=== PATIENT | female | born 1930 | race African-American/Black ===

== ENCOUNTER 2019-08-08 13:52 | Inpatient (IN) | payer MEDICARE, MEDICAID ==
[2019-08-08] MEDS ORDERED: HYDROCODONE/ACETAMINOPHEN 5-325 MG TABLET PO ONE (14:18)
[2019-08-08 14:44] LABS: ABSOLUTE LYMPHOCYTES (AUTO) 0.5 10^3/uL (0.5-4.7); ABSOLUTE MONOCYTES (AUTO) 0.6 10^3/uL (0.1-1.4); ABSOLUTE NEUT (AUTO) 4.8 10^3/uL (1.7-8.2); BASOPHILS % (AUTO) 0.3 % (0-2); HEMATOCRIT 24.9 % (36.0-47.0); HEMOGLOBIN 8.3 g/dL (12.0-15.5); LYMPHOCYTES % (AUTO) 8.2 % (13-45); MEAN CORPUSCULAR HEMOGLOBIN 28.4 pg (27.0-33.4); MEAN CORPUSCULAR HGB CONC 33.2 g/dL (32.0-36.0); MEAN CORPUSCULAR VOLUME 85 fl (80-97); MONOCYTES % (AUTO) 10.4 % (3-13); PLATELET COUNT 211 10^3/uL (150-450); RED BLOOD COUNT 2.92 10^6/uL (3.72-5.28); RED CELL DISTRIBUTION WIDTH 14.8 % (11.5-14.0); SEGMENTED NEUTROPHILS % (AUTO) 81.1 % (42-78); TOTAL CELLS COUNTED % (AUTO) 100 %
[2019-08-08 15:02] LABS: ALBUMIN 3.9 g/dL (3.5-5.0); ALKALINE PHOSPHATASE 86 U/L (38-126); ANION GAP 8 (5-19); ASPARTATE AMINO TRANSFERASE 54 U/L (14-36); BILIRUBIN,DIRECT 0.2 mg/dL (0.0-0.4); BILIRUBIN,TOTAL 0.5 mg/dL (0.2-1.3); BLOOD UREA NITROGEN 26 mg/dL (7-20); CALCIUM 9.4 mg/dL (8.4-10.2); CARBON DIOXIDE 28 mmol/L (22-30); CHLORIDE 101 mmol/L (98-107); GLUCOSE 109 mg/dL (75-110); TOTAL PROTEIN 7.2 g/dL (6.3-8.2)
--- NOTE | 2019-08-08 15:04 | ER Document Report ---
ED Extremity Problem, Lower - General Stated Complaint: FALL/LEFT ARM PAIN Time Seen by Provider: 08/08/19 14:14 Mode of Arrival: Ambulatory Information source: Patient Notes: Chief complaint: Left elbow pain History of complain:( obtained from----patient) 89 years old female while walking tripped and fell backwards while falling so she landed on her left elbow. This happened 3 days ago since then having pain over the left elbow, the family was putting ice and rubbing the arm, currently developed diffuse erythema involving the distal half of the arm and almost the entire forearm and elbow. Therefore they brought her to the ED. No syncopal episode., Denies any head injury. Currently denies any headache n pillo pain chest pain or lower back pain. Denies any pain or injury to the hips. Onset: As above Duration: As above Severity: Moderate Quality: Sharp Context: As described above Exacerbating factor and relieving factors: Any movement REVIEW OF SYSTEMS: CONSTITUTIONAL : Denies fever, chills, or sweats. Denies recent illness. EENT: Denies eye, ear, throat, or mouth pain or symptoms. Denies nasal or sinus congestion or discharge. Denies throat, tongue, or mouth swelling or difficulty swallowing. CARDIOVASCULAR: Denies chest pain. Denies palpitations or racing or irregular heart beat. Denies ankle edema. RESPIRATORY: Denies cough, cold, or chest congestion. Denies shortness of br eath, difficulty breathing, or wheezing. GASTROINTESTINAL: Denies distention. Denies nausea, vomiting, or diarrhea. Denies blood in vomitus, stools, or per rectum. Denies black, tarry stools. De nies constipation. GENITOURINARY: Denies difficulty urinating, painful urination, burning, frequen cy, blood in urine, or discharge. FEMALE GENITOURINARY: Denies vaginal bleeding, heavy or abnormal periods, irregular periods. Denies vaginal discharge or odor. MUSCULOSKELETAL: SKIN: Denies rash, lesions or sores. HEMATOLOGIC : LYMPHATIC: Denies swollen, enlarged glands. NEUROLOGICAL: Denies confusion or altered mental status. Denies passing out or loss of consciousness. Denies dizziness or lightheadedness. Denies headache. Denies weakness or paralysis or loss of use of either side. Denies problems with gait or speech. Denies sensory loss, numbness, or tingling. Denies sei zures. PSYCHIATRIC: Denies anxiety or stress. Denies depression, suicidal ideation, or homicidal ideation. ALL OTHER SYSTEMS REVIEWED AND NEGATIVE. PHYSICAL EXAMINATION: GENERAL: Well-appearing, well-nourished morbid obesity, mild discomfort HEAD: Atraumatic, normocephalic. EYES: Pupils equal round and reactive to light, extraocular movements intact, conjunctiva are normal. ENT: Nares patent, oropharynx clear without exudates. Moist mucous membranes. NECK: Normal range of motion, nontender cervical spine. Able to flex extend rotate. Supple without lymphadenopathy LUNGS: Breath sounds clear to auscultation bilaterally and equal. No wheezes rales or rhonchi. HEART: Regular rate and rhythm without murmurs ABDOMEN: Soft, nontender, nondistended abdomen. No guarding, no rebound. No masses appreciated. Examination of genitals-deferred Musculoskeletal: -Left distal arm shows diffuse erythema, which is extending through the elbow all the way to the distal forearm. With swelling tenderness, is not warm. She could not perform any flexion extension pronation or supination of the forearm. NEUROLOGICAL: Cranial nerves grossly intact. Normal speech, normal gait. Normal sensory, motor exams PSYCH: Normal mood, normal affect. SKIN: Warm, Dry, normal turgor, no rashes or lesions noted. Dictation was performed using [employer] voice recognition software - [employer] Notes: Dictated - Related Data Allergies/Adverse Reactions: No Known Allergies Allergy (Unverified 08/08/19 16:29) Past Medical History - Social History Smoking Status: Unknown if Ever Smoked Cigarette use (# per day): No Chew tobacco use (# tins/day): No Smoking Education Provided: No Frequency of alcohol use: None Drug Abuse: None Lives with: Family Family History: Reviewed & Not Pertinent Patient has suicidal ideation: No Patient has homicidal ideation: No - Medical History Notes: Dictated - Past Medical History Cardiac Medical History: Reports: Hx Hypertension Denies: Hx Coronary Artery Disease, Hx Heart Attack Pulmonary Medical History: Reports: Hx Bronchitis Denies: Hx Asthma, Hx COPD, Hx Pneumonia Neurological Medical History: Denies: Hx Cerebrovascular Accident, Hx Seizures Musculoskeletal Medical History: 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 - Immunizations Hx Diphtheria, Pertussis, Tetanus Vaccination: No Review of Systems - Review of Systems Notes: Dictated Physical Exam - Vital signs Vitals: Resp BP Pulse Ox 23 H 156/44 H 100 08/08/19 14:29 08/08/19 14:29 08/08/19 14:29 - Notes Notes: Dictated Course - Re-evaluation Re-evalutation: Case was discussed with orthopedic as well as hospitalist and currently being admitted - Vital Signs Vital signs: Temp Pulse Resp BP Pulse Ox 97.8 F 63 18 138/59 H 99 08/08/19 23:14 08/08/19 23:14 08/08/19 23:14 08/08/19 23:14 08/08/19 23:14 - Laboratory Result Diagrams: 08/08/19 14:32 08/08/19 14:32 Laboratory results interpreted by me: 08/08/19 08/08/19 08/08/19 14:32 14:32 14:32 RBC 2.92 L Hgb 8.3 L Hct 24.9 L RDW 14.8 H Lymph % (Auto) 8.2 L Seg Neutrophils % 81.1 H BUN 26 H Est GFR ( Amer) 52 L Est GFR (MDRD) Non-Af 43 L Iron 24.7 L AST 54 H - Diagnostic Test Radiology reviewed: Reports reviewed - X-ray reported by radiologist as distal humeral fracture Discharge - Discharge Clinical Impression: Humeral distal fracture Qualifiers: Encounter type: initial encounter Fracture type: closed Fracture morphology: unspecified fracture morphology Laterality: left Qualified Code(s): S42.402A - Unspecified fracture of lower end of left humerus, initial encounter for closed fracture Condition: Fair Disposition: ADMITTED INPATIENT Admitting Provider: Brigid (Hospitalist)
--- NOTE | 2019-08-08 15:15 | RADIOLOGY REPORT (SQ) ---
EXAM DESCRIPTION: ELBOW LEFT OVER 2 VIEWS COMPLETED DATE/TIME: 08/08/2019 3:06 pm REASON FOR STUDY: deformity, bone tenderness COMPARISON: None. NUMBER OF VIEWS: Two views. TECHNIQUE: AP and lateral radiographic images acquired of the left elbow. LIMITATIONS: None. FINDINGS: MINERALIZATION: Normal. BONES: There is a fracture deformity of the distal humerus; anatomy and acuity uncertain. JOINT: No effusion. SOFT TISSUES: Diffuse soft tissue swelling about the left elbow and included upper extremity. OTHER: No other significant finding. IMPRESSION: There is a fracture deformity of the distal humerus; anatomy and acuity uncertain on vie ws provided. Diffuse soft tissue swelling about the left elbow and included upper extremity. Consid er CT to further evaluate. TECHNICAL DOCUMENTATION: JOB ID: [id number] [employer]- All Rights Reserved Reading location - IP/workstation name: [email or web address]
[2019-08-08] MEDS ORDERED: IPRATROPIUM/ALBUTEROL 0.5-2.5 MG/3 ML AMPUL NEB PRN (16:01)
[2019-08-08] MEDS ORDERED: ONDANSETRON HCL INJ/PF 4 MG/2 ML SDV IV PRN (16:01)
[2019-08-08] MEDS ORDERED: ACETAMINOPHEN 325 MG TABLET PO PRN (16:01)
[2019-08-08] MEDS ORDERED: NORMAL SALINE 1000 ML 1,000 ML IV PRN (16:01)
[2019-08-08] MEDS ORDERED: DEXTROSE 40% GEL 15 GM TUBE PO PRN ×2 (16:07)
[2019-08-08] MEDS ORDERED: DEXTROSE 50%-WATER 25 GM/50 ML DISP.SYRIN IV PRN ×2 (16:07)
[2019-08-08] MEDS ORDERED: GLUCAGON,HUMAN RECOMB 1 MG INJ IM PRN (16:07)
[2019-08-08] MEDS ORDERED: HYDRALAZINE HCL INJ/PF 20 MG/1 ML SDV IV PRN (16:08)
[2019-08-08] MEDS ORDERED: GUAIFENESIN/D-METHORPHAN (200-20 MG) SYRUP 10 ML PO PRN (16:10)
--- NOTE | 2019-08-08 16:31 | RADIOLOGY REPORT (SQ) ---
EXAM DESCRIPTION: CT HEAD WITHOUT COMPLETED DATE/TIME: 08/08/2019 4:19 pm REASON FOR STUDY: Fall COMPARISON: None. TECHNIQUE: Axial images acquired through the brain without intravenous contrast. Images reviewed wi th bone, brain and subdural windows. Additional sagittal and coronal reconstructions were generated. Images stored on PACS. All CT scanners at this facility use dose modulation, iterative reconstruction, and/or weight based d osing when appropriate to reduce radiation dose to as low as reasonably achievable (ALARA). [facility]: Dose Right [facility]: CareDose [facility]: Dose Right [facility]: Teradose 4D [facility]: [employer] RADIATION DOSE: CT Rad equipment meets quality standard of care and radiation dose reduction techniq ues were employed. CTDIvol: 53.2 mGy. DLP: 1017 mGy-cm.mGy. LIMITATIONS: None. FINDINGS: VENTRICLES: Prominent. CEREBRUM: No masses. No hemorrhage. No midline shift. Areas of low density in the white matter mos t likely due to chronic micro-vascular ischemic change. No evidence for acute infarction. CEREBELLUM: No masses. No hemorrhage. No alteration of density. No evidence for acute infarction. EXTRAAXIAL SPACES: Age-related involutional change. No fluid collections. No masses. ORBITS AND GLOBE: No intra- or extraconal masses. Normal contour of globe without masses. CALVARIUM: No fracture. PARANASAL SINUSES: No fluid or mucosal thickening. SOFT TISSUES: No mass or hematoma. OTHER: No other significant finding. IMPRESSION: CHRONIC CHANGES OF ATROPHY AND MICROVASCULAR ISCHEMIA. NO ACUTE PROCESS. EVIDENCE OF ACUTE STROKE: NO. TECHNICAL DOCUMENTATION: JOB ID: [id number] Quality ID # [id number]: Final reports with documentation of one or more dose reduction techniques (e.g., Au tomated exposure control, adjustment of the mA and/or kV according to patient size, use of iterative reconstruction technique) 2010 [employer]- All Rights Reserved Reading location - IP/workstation name: [email or web address]
[2019-08-08 16:34] LABS: IRON(TIBC) 24.7 ug/dL (37-170)
[2019-08-08 16:41] LABS: RETICULOCYTE COUNT (AUTO) 2.38 % (0.66-2.85)
--- NOTE | 2019-08-08 17:52 | PDOC CONSULTATION ---
Consultation Consult Date: 08/08/19 Provider Consulted: REGAN ANG History of Present Illness Admission Date/PCP: 08/08/19 16:26 Patient complains of: Left elbow pain History of Present Illness: CARLOS SAMUELS is a 89 year old female who lives at home with her daughter but unfortunately her daughter was out of town. She sustained a fall onto her left elbow 3 days ago and was being treated by the family with icing and elevation. Patient continued to have swelling and thus was brought by EMS to the emergency room where x-rays demonstrated fracture. Patient poor historian but notes pain with any attempted motion. Denies numbness. Pain 02/23. 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 Hematology: Reports: Anemia Social History Lives with: Family Smoking Status: Unknown if Ever Smoked Family History Parental Family History Reviewed: No Children Family History Reviewed: No Sibling(s) Family History Reviewed.: No Medication/Allergy Home Medications: Diltiazem HCl [Diltiazem 24Hr ER] 360 mg PO DAILY 08/08/19 Losartan/Hydrochlorothiazide [Losartan-Hctz 100-25 mg Tab] 1 tab PO DAILY 08/08/19 Meloxicam [Mobic] 15 mg PO QPM 08/08/19 Metformin HCl [Glucophage 500 mg Tablet] 500 mg PO BID 08/08/19 Olanzapine [Olanzapine Odt] 15 mg PO BID 08/08/19 Potassium Chloride [Klor-Con 10 Meq Capsule ER] 10 meq PO BID 08/08/19 Simvastatin [Zocor 40 mg Tablet] 40 mg PO QHS 08/08/19 Allergies/Adverse Reactions: No Known Allergies Allergy (Unverified 08/08/19 16:29) Review of Systems ROS unobtainable: Due to mental status - Patient poor historian limiting complete review of systems will answer questions Constitutional: ABSENT: chills, fever(s), headache(s), weight gain, weight loss Eyes: ABSENT: visual disturbances Ears: ABSENT: hearing changes Cardiovascular: ABSENT: chest pain, dyspnea on exertion, edema, orthropnea, palpitations Respiratory: ABSENT: cough, hemoptysis Gastrointestinal: ABSENT: abdominal pain, constipation, diarrhea, hematemesis, hematochezia, nausea, vomiting Genitourinary: ABSENT: dysuria, hematuria Integumentary: ABSENT: rash, wounds Neurological: ABSENT: abnormal gait, abnormal speech, confusion, dizziness, focal weakness, syncope Psychiatric: ABSENT: anxiety, depression, homidical ideation, suicidal ideation Endocrine: ABSENT: cold intolerance, heat intolerance, menstrual abnormalities, polydipsia, polyuria Hematologic/Lymphatic: ABSENT: easy bleeding, easy bruising, lymphadenopathy Physical Exam Vital Signs: Temp Pulse Resp BP Pulse Ox 16 156/44 H 100 08/08/19 16:00 08/08/19 14:29 08/08/19 14:30 General appearance: PRESENT: no acute distress, hard of hearing, well-developed, well-nourished Head exam: PRESENT: atraumatic, normocephalic Eye exam: PRESENT: conjunctiva pink, EOMI, PERRLA. ABSENT: scleral icterus Ear exam: PRESENT: normal external ear exam Mouth exam: PRESENT: moist, tongue midline Neck exam: PRESENT: full ROM. ABSENT: carotid bruit, JVD, lymphadenopathy, thyromegaly Cardiovascular exam: PRESENT: RRR. ABSENT: diastolic murmur, rubs, systolic murmur Pulses: PRESENT: normal dorsalis pedis pul, +2 pedal pulses bilateral Vascular exam: PRESENT: normal capillary refill GI/Abdominal exam: PRESENT: normal bowel sounds, soft. ABSENT: distended, guarding, mass, organolmegaly, rebound, tenderness Rectal exam: PRESENT: deferred Musculoskeletal exam: PRESENT: other - Left upper extremity: Diffuse ecchymosis, erythema and swelling throughout the distal humerus appropriate tenderness to palpation. Compartments: But soft and compressible no sign of compartment syndrome. Intact flexion extension of the IP/MP joints. No pain with passive stretch. Radial pulse 2+. No sensory deficits. Neurological exam: PRESENT: alert, awake, oriented to person, oriented to place, oriented to time, oriented to situation, CN II-XII grossly intact. ABSENT: motor sensory deficit Psychiatric exam: PRESENT: flat affect, normal mood. ABSENT: homicidal ideation, suicidal ideation Skin exam: PRESENT: dry, intact, warm. ABSENT: cyanosis, rash Results Laboratory Results: 08/08/19 14:32 08/08/19 14:32 08/08/19 08/08/19 08/08/19 14:32 14:32 14:32 WBC 6.0 RBC 2.92 L Hgb 8.3 L Hct 24.9 L MCV 85 MCH 28.4 MCHC 33.2 RDW 14.8 H Plt Count 211 Seg Neutrophils % 81.1 H Retic Count (auto) 2.38 Sodium 137.3 Potassium 4.0 Chloride 101 Carbon Dioxide 28 Anion Gap 8 BUN 26 H Creatinine 1.19 Est GFR ( Amer) 52 L Glucose 109 Calcium 9.4 Iron TIBC % Saturation Ferritin Total Bilirubin 0.5 AST 54 H Alkaline Phosphatase 86 Total Protein 7.2 Albumin 3.9 Vitamin B12 Folate 08/08/19 14:32 WBC RBC Hgb Hct MCV MCH MCHC RDW Plt Count Seg Neutrophils % Retic Count (auto) Sodium Potassium Chloride Carbon Dioxide Anion Gap BUN Creatinine Est GFR ( Amer) Glucose Calcium Iron 24.7 L TIBC 309 % Saturation 8 Ferritin 105.00 Total Bilirubin AST Alkaline Phosphatase Total Protein Albumin Vitamin B12 310.0 Folate 6.40 Impressions: Elbow X-Ray 08/08/19 14:02 IMPRESSION: There is a fracture deformity of the distal humerus; anatomy and acuity uncertain on views provided. Diffuse soft tissue swelling about the left elbow and included upper extremity. Consider CT to further evaluate. Head CT 08/08/19 16:09 IMPRESSION: CHRONIC CHANGES OF ATROPHY AND MICROVASCULAR ISCHEMIA. NO ACUTE PROCESS. EVIDENCE OF ACUTE STROKE: NO. Status: Image reviewed by ia - I have reviewed patient's radiographs which are consistent with a extra-articular distal humerus fracture Assessment & Plan - Diagnosis (1) Closed fracture of left distal humerus Qualifiers: Encounter type: initial encounter Fracture morphology: other fracture Fracture alignment: displaced Qualified Code(s): S42.492A - Other displaced fracture of lower end of left humerus, initial encounter for closed fracture Is this a current diagnosis for this admission?: Yes Plan: Patient sustained a extra-articular left distal humerus fracture I have recommended a CT scan to further evaluate fracture. Given current swelling and ecchymosis I do not feel operative intervention is a reasonable choice until the swelling improves. Various treatment options including nonoperative treatment of also been discussed with the patient and sister but did not feel decision of surgical treatment is required today. At this point we will reevaluate the CT scan and come up with appropriate treatment plan. The meantime patient will placed in a sling with aggressive elevation and ice. There is no sign or symptoms of a compartment syndrome. Patient may require discharge home and set up as outpatient for surgical treatment.
--- NOTE | 2019-08-08 18:20 | RADIOLOGY REPORT (SQ) ---
EXAM DESCRIPTION: CT LT UPPER EXTREMITY WITHOUT COMPLETED DATE/TIME: 08/08/2019 6:01 pm REASON FOR STUDY: left distal humerus fracture COMPARISON: Plain radiograph TECHNIQUE: Axial imaging performed through the left elbow with reformatted coronal and sagittal imag ing windowed for bone and soft tissues. Images saved to PACS. 3D IMAGING: Were 3D images as MIP, SSD, or volume rendering performed at the work station? Known All CT scanners at this facility use dose modulation, iterative reconstruction, and/or weight based d osing when appropriate to reduce radiation dose to as low as reasonably achievable (ALARA). [facility]: Dose Right [facility]: CareDose [facility]: Dose Right [facility]: Teradose 4D [facility]: [employer] LIMITATIONS: None. RADIATION DOSE: CT Rad equipment meets quality standard of care and radiation dose reduction techniq ues were employed. CTDIvol: 2.6 mGy. DLP: 63 mGy-cm. mGy. FINDINGS: SOFT TISSUES: No obvious swelling or foreign body. BONES: Fracture of the distal humerus with posterior displacement of the distal humeral fragment. Hu meral articulation with the radius and ulnar is anatomic. MINERALIZATION: Normal. OTHER: No other significant finding. IMPRESSION: Fracture of the distal radius with posterior displacement of the distal humeral fragment . Humeral articulation with the radius and ulnar is anatomic. TECHNICAL DOCUMENTATION: JOB ID: [id number] Quality ID # [id number]: Final reports with documentation of one or more dose reduction techniques (e.g., Au tomated exposure control, adjustment of the mA and/or kV according to patient size, use of iterative reconstruction technique) [address] [employer]- All Rights Reserved Reading location - IP/workstation name: [email or web address]
[2019-08-08] MEDS: PANTOPRAZOLE SODIUM 40 MG TABLET.DR PO SCH (18:21)
[2019-08-08] MEDS: DOCUSATE SODIUM 100 MG CAPSULE PO SCH (18:21)
[2019-08-08] MEDS: MORPHINE SULFATE 10 MG/ML INJ IV PRN (18:56)
[2019-08-08] MEDS ORDERED: HEPARIN SOD (PORCINE) 5,000 UNIT/ML 1 ML VIAL SUBCUT ONE ×2 (23:45→23:59)
[2019-08-09] MEDS: OXYCODONE-ACETAMINOPHEN 5-325 MG TABLET PO PRN ×3 (00:47→14:04)
[2019-08-09] MEDS: HEPARIN SOD (PORCINE) 5,000 UNIT/ML 1 ML VIAL SUBCUT SCH ×4 (00:48→21:42)
[2019-08-09 05:53] LABS: INTERNATIONAL RATION (INR) 1.48; PROTHROMBIN TIME 18.1 SEC (11.4-15.4)
[2019-08-09] MEDS: PANTOPRAZOLE SODIUM 40 MG TABLET.DR PO SCH ×2 (06:40→17:11)
[2019-08-09] MEDS: INSULIN LISPRO 100 UNIT/ML 3 ML VIAL SUBCUT SCH ×5 (07:55→21:47)
[2019-08-09] MEDS: DOCUSATE SODIUM 100 MG CAPSULE PO SCH ×2 (09:16→17:11)
[2019-08-09 09:54] LABS: ALBUMIN 3.7 g/dL (3.5-5.0); ALKALINE PHOSPHATASE 81 U/L (38-126); ANION GAP 9 (5-19); ASPARTATE AMINO TRANSFERASE 66 U/L (14-36); BILIRUBIN,DIRECT 0.2 mg/dL (0.0-0.4); BILIRUBIN,TOTAL 0.4 mg/dL (0.2-1.3); BLOOD UREA NITROGEN 28 mg/dL (7-20); CALCIUM 9.1 mg/dL (8.4-10.2); CARBON DIOXIDE 26 mmol/L (22-30); CHLORIDE 102 mmol/L (98-107); GLUCOSE 87 mg/dL (75-110); POTASSIUM 4.3 mmol/L (3.6-5.0); TOTAL PROTEIN 6.8 g/dL (6.3-8.2)
[2019-08-09 10:17] LABS: ABSOLUTE LYMPHOCYTES (AUTO) 0.6 10^3/uL (0.5-4.7); ABSOLUTE MONOCYTES (AUTO) 0.6 10^3/uL (0.1-1.4); ABSOLUTE NEUT (AUTO) 3.7 10^3/uL (1.7-8.2); BASOPHILS % (AUTO) 0.4 % (0-2); EOSINOPHILS % (AUTO) 0.5 % (0-6); HEMATOCRIT 24.6 % (36.0-47.0); LYMPHOCYTES % (AUTO) 11.3 % (13-45); MEAN CORPUSCULAR HEMOGLOBIN 27.5 pg (27.0-33.4); MEAN CORPUSCULAR HGB CONC 32.1 g/dL (32.0-36.0); MEAN CORPUSCULAR VOLUME 86 fl (80-97); MONOCYTES % (AUTO) 13.1 % (3-13); PLATELET COUNT 210 10^3/uL (150-450); RED BLOOD COUNT 2.87 10^6/uL (3.72-5.28); SEGMENTED NEUTROPHILS % (AUTO) 74.7 % (42-78); TOTAL CELLS COUNTED % (AUTO) 100 %; WHITE BLOOD COUNT 4.9 10^3/uL (4.0-10.5)
[2019-08-09 10:23] LABS: HEMOGLOBIN 7.9 g/dL (12.0-15.5)
[2019-08-09] MEDS ORDERED: (PENDING PHARMACY ID) (Diltiazem Hcl [Diltiazem 24hr Er] 360 MG) PO SCH (10:45)
--- NOTE | 2019-08-09 12:20 | PDOC H&P ---
History of Present Illness Admission Date/PCP: 08/08/19 16:26 History of Present Illness: CARLOS SAMUELS is a 89 year old female past medical history of hypertension, diabetes, obesity, physical deconditioning, dementia, currently living with daughter who is out of the state and being looked after by her sister who brought her to ED. Source of history is sister. As per sister patient has chronic lower extremity weakness due to the physical deconditioning and ambulates very slowly. She had a fall 3 days ago due to underlying lower extremity weakness, landed on the left side sustaining a swelling of the left upper extremity, did not have syncope and did not have any head trauma as a result, patient family started applying ice lotions to her left upper extremity. Did not seek any medical attention until they noticed that the swelling was getting worse and she was developing erythema and warmth to the upper extremity. Patient herself is very pleasant, cooperative with physical examination, oriented to person and place, does not provide much history due to advanced dementia, complaining of left upper extremity pain and swelling, denies any fever, chills, nausea, vomiting, diarrhea, constipation or any urinary symptoms. In ED left upper extremity showed a fracture of the humerus, orthopedic surgeon was consulted and they requested the patient to be admitted under hospital for management of underlying medical comorbidities and patient will be seen tomorrow in the hospital. On physical examination there is no other sign of trauma , except for left upper extremity swelling, erythema and warmth. Head CT negative for any acute changes. 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 Hematology: Reports: Anemia Social History Lives with: Family Smoking Status: Unknown if Ever Smoked Frequency of Alcohol Use: None Hx Recreational Drug Use: No Drugs: None Hx Prescription Drug Abuse: No Family History Family History: Reviewed & Not Pertinent Parental Family History Reviewed: Yes Children Family History Reviewed: Yes Sibling(s) Family History Reviewed.: Yes Medication/Allergy Home Medications: Diltiazem HCl [Diltiazem 24Hr ER] 360 mg PO DAILY 08/08/19 Losartan/Hydrochlorothiazide [Losartan-Hctz 100-25 mg Tab] 1 tab PO DAILY 08/08/19 Meloxicam [Mobic] 15 mg PO QPM 08/08/19 Metformin HCl [Glucophage 500 mg Tablet] 500 mg PO BID 08/08/19 Olanzapine [Olanzapine Odt] 15 mg PO BID 08/08/19 Potassium Chloride [Klor-Con 10 Meq Capsule ER] 10 meq PO BID 08/08/19 Simvastatin [Zocor 40 mg Tablet] 40 mg PO QHS 08/08/19 Allergies/Adverse Reactions: No Known Allergies Allergy (Unverified 08/08/19 16:29) Review of Systems Review of Systems: as per hpi Physical Exam Vital Signs: Temp Pulse Resp BP Pulse Ox 98.6 F 133 H 14 112/45 L 85 L 08/09/19 09:19 08/09/19 11:33 08/09/19 11:33 08/09/19 11:33 08/09/19 11:33 Intake & Output 08/08/19 08/09/19 08/10/19 06:59 06:59 06:59 Intake Total 0 1000 Output Total 0 Balance 0 1000 Weight 88.2 kg General appearance: PRESENT: no acute distress, well-developed, well-nourished Head exam: PRESENT: atraumatic, normocephalic Respiratory exam: PRESENT: clear to auscultation neal. ABSENT: rales, rhonchi, wheezes Cardiovascular exam: PRESENT: RRR. ABSENT: diastolic murmur, rubs, systolic murmur GI/Abdominal exam: PRESENT: normal bowel sounds, soft. ABSENT: distended, guarding, mass, organolmegaly, rebound, tenderness Extremities exam: PRESENT: tenderness, other - Left distal upper extremity ci rcumferential swelling and erythema starting from the wrist elbow joint. TTP on palpation. No skin compromise, no discharge. Neurological exam: PRESENT: alert, altered, CN II-XII grossly intact Results Laboratory Results: 08/09/19 08:26 08/09/19 08:26 08/08/19 08/08/19 08/08/19 14:32 14:32 14:32 WBC 6.0 RBC 2.92 L Hgb 8.3 L Hct 24.9 L MCV 85 MCH 28.4 MCHC 33.2 RDW 14.8 H Plt Count 211 Seg Neutrophils % 81.1 H Retic Count (auto) 2.38 Sodium 137.3 Potassium 4.0 Chloride 101 Carbon Dioxide 28 Anion Gap 8 BUN 26 H Creatinine 1.19 Est GFR ( Amer) 52 L Est GFR (Non-Af Amer) Glucose 109 Calcium 9.4 Magnesium Iron TIBC % Saturation Ferritin Total Bilirubin 0.5 AST 54 H Alkaline Phosphatase 86 Total Protein 7.2 Albumin 3.9 Vitamin B12 Folate 08/08/19 08/09/19 08/09/19 14:32 04:10 04:10 WBC Cancelled RBC Cancelled Hgb Cancelled Hct Cancelled MCV Cancelled MCH Cancelled MCHC Cancelled RDW Cancelled Plt Count Cancelled Seg Neutrophils % Cancelled Retic Count (auto) Sodium Cancelled Potassium Cancelled Chloride Cancelled Carbon Dioxide Cancelled Anion Gap Cancelled BUN Cancelled Creatinine Cancelled Est GFR ( Amer) Cancelled Est GFR (Non-Af Amer) Cancelled Glucose Cancelled Calcium Cancelled Magnesium Cancelled Iron 24.7 L TIBC 309 % Saturation 8 Ferritin 105.00 Total Bilirubin Cancelled AST Cancelled Alkaline Phosphatase Cancelled Total Protein Cancelled Albumin Cancelled Vitamin B12 310.0 Folate 6.40 08/09/19 08/09/19 08:26 08:26 WBC 4.9 RBC 2.87 L Hgb 7.9 L Hct 24.6 L MCV 86 MCH 27.5 MCHC 32.1 RDW 15.0 H Plt Count 210 Seg Neutrophils % 74.7 Retic Count (auto) Sodium 137.3 Potassium 4.3 Chloride 102 Carbon Dioxide 26 Anion Gap 9 BUN 28 H Creatinine 1.44 H Est GFR ( Amer) 42 L Est GFR (Non-Af Amer) Glucose 87 Calcium 9.1 Magnesium 2.1 Iron TIBC % Saturation Ferritin Total Bilirubin 0.4 AST 66 H Alkaline Phosphatase 81 Total Protein 6.8 Albumin 3.7 Vitamin B12 Folate Impressions: Upper Extremity CT 08/08/19 00:00 IMPRESSION: Fracture of the distal radius with posterior displacement of the distal humeral fragment. Humeral articulation with the radius and ulnar is anatomic. Elbow X-Ray 08/08/19 14:02 IMPRESSION: There is a fracture deformity of the distal humerus; anatomy and acuity uncertain on views provided. Diffuse soft tissue swelling about the left elbow and included upper extremity. Consider CT to further evaluate. Head CT 08/08/19 16:09 IMPRESSION: CHRONIC CHANGES OF ATROPHY AND MICROVASCULAR ISCHEMIA. NO ACUTE PROCESS. EVIDENCE OF ACUTE STROKE: NO. Assessment and Plan - Diagnosis (1) Cellulitis Qualifiers: Site of cellulitis of extremity: upper extremity Laterality: left Is this a current diagnosis for this admission?: Yes Plan: Left upper extremity. There is circumferential swelling and erythema of left upper extremity from elbow to the wrist. Neurovascularly intact. No skin compromise. No discharge or collection. Received 1 dose of IV ceftriaxone in ED. Afebrile. WBC WNL. Received 1 dose of ceftriaxone in ED. Will start on Keflex p.o. (2) Humeral distal fracture Qualifiers: Encounter type: initial encounter Fracture type: closed Fracture morphology: unspecified fracture morphology Laterality: left Qualified Code(s): S42.402A - Unspecified fracture of lower end of left humerus, initial encounter for closed fracture Is this a current diagnosis for this admission?: Yes Plan: Traumatic fracture of the left upper extremity. X-ray positive for fracture of distal radius with posterior displacement of the distal humeral fragment. Orthopedic surgeon has been consulted by ED. Plan is to admit patient for management of underlying medical condition and orthopedic surgery will evaluate tomorrow. Continue supportive measures. (3) Hypertension Is this a current diagnosis for this admission?: Yes Plan: Restart home meds. Adjust meds as needed. (4) Diabetes Is this a current diagnosis for this admission?: Yes Plan: Metformin at home. Diabetic diet, pre-meal insulin, sliding scale insulin, Accu-Chek, glycemic protocol. Will DC home on home meds to be followed by PCP. (5) Schizophrenia Is this a current diagnosis for this admission?: Yes Plan: On olanzapine twice daily. WBC WNL, normal differential. (6) Anemia Is this a current diagnosis for this admission?: Yes Plan: Microcytic. Denies any melena, hematemesis, hemoptysis, hematochezia, vaginal bleeding. Likely due to nutritional deficiency. We will check iron panel, B12 and folic acid guaiac. Supportive transfusions. (7) Physical deconditioning Is this a current diagnosis for this admission?: Yes Plan: Chronic. PT OT. Patient will likely benefit from transitioning to short-term rehab.
--- NOTE | 2019-08-09 12:58 | PDOC PROGRESS REPORT ---
Subjective Progress Note for:: 08/09/19 Subjective:: CARLOS SAMUELS is a 89 year old female past medical history of hypertension, diabetes, obesity, physical deconditioning, dementia, currently living with daughter who is out of the state and being looked after by her sister who brought her to ED. Source of history is sister. As per sister patient has chronic lower extremity weakness due to the physical deconditioning and ambulates very slowly. She had a fall 3 days ago due to underlying lower extremity weakness, landed on the left side sustaining a swelling of the left upper extremity, did not have syncope and did not have any head trauma as a result, patient family started applying ice lotions to her left upper extremity. Did not seek any medical attention until they noticed that the swelling was getting worse and she was developing erythema and warmth to the upper extremity. Patient herself is very pleasant, cooperative with physical examination, oriented to person and place, does not provide much history due to advanced dementia, complaining of left upper extremity pain and swelling, denies any f ever, chills, nausea, vomiting, diarrhea, constipation or any urinary symptoms. In ED left upper extremity showed a fracture of the humerus, orthopedic surgeon was consulted and they requested the patient to be admitted under hospital for management of underlying medical comorbidities and patient will be seen tomorrow in the hospital. On physical examination there is no other sign of trauma , except for left upper extremity swelling, erythema and warmth. Head CT negative for any acute changes . 08/09/2019. No acute events overnight. Erythema and swelling of the left upper extremity improving. Patient denies any fever, chills, nausea, vomiting, diarrhea, constipation or any urinary signs. Patient has been evaluated by orthopedic surgeon, no intervention at this point due to underlying left lower extremity cellulitis, plan is medical management this point and possible outpatient follow-up for any intervention. Reason For Visit: LEFT HUMERAL FRACTURE,LEFT UPPER EXTREMITY CELLULI Physical Exam Vital Signs: Temp Pulse Resp BP Pulse Ox 98.6 F 133 H 14 112/45 L 85 L 08/09/19 09:19 08/09/19 11:33 08/09/19 11:33 08/09/19 11:33 08/09/19 11:33 Intake & Output 08/08/19 08/09/19 08/10/19 06:59 06:59 06:59 Intake Total 0 1000 Output Total 0 Balance 0 1000 Weight 88.2 kg General appearance: PRESENT: no acute distress, well-developed, well-nourished Head exam: PRESENT: atraumatic, normocephalic Respiratory exam: PRESENT: clear to auscultation neal. ABSENT: rales, rhonchi, wheezes Cardiovascular exam: PRESENT: RRR. ABSENT: diastolic murmur, rubs, systolic murmur GI/Abdominal exam: PRESENT: normal bowel sounds, soft. ABSENT: distended, guarding, mass, organolmegaly, rebound, tenderness Extremities exam: PRESENT: other - Left upper extremity swelling and erythema improving. No active discharge. Neurovascularly intact. Neurological exam: PRESENT: alert, altered, awake, CN II-XII grossly intact Results Laboratory Results: 08/09/19 08:26 08/09/19 08:26 08/08/19 08/08/19 08/08/19 14:32 14:32 14:32 WBC 6.0 RBC 2.92 L Hgb 8.3 L Hct 24.9 L MCV 85 MCH 28.4 MCHC 33.2 RDW 14.8 H Plt Count 211 Seg Neutrophils % 81.1 H Retic Count (auto) 2.38 Sodium 137.3 Potassium 4.0 Chloride 101 Carbon Dioxide 28 Anion Gap 8 BUN 26 H Creatinine 1.19 Est GFR ( Amer) 52 L Est GFR (Non-Af Amer) Glucose 109 Calcium 9.4 Magnesium Iron TIBC % Saturation Ferritin Total Bilirubin 0.5 AST 54 H Alkaline Phosphatase 86 Total Protein 7.2 Albumin 3.9 Vitamin B12 Folate 08/08/19 08/09/19 08/09/19 14:32 04:10 04:10 WBC Cancelled RBC Cancelled Hgb Cancelled Hct Cancelled MCV Cancelled MCH Cancelled MCHC Cancelled RDW Cancelled Plt Count Cancelled Seg Neutrophils % Cancelled Retic Count (auto) Sodium Cancelled Potassium Cancelled Chloride Cancelled Carbon Dioxide Cancelled Anion Gap Cancelled BUN Cancelled Creatinine Cancelled Est GFR ( Amer) Cancelled Est GFR (Non-Af Amer) Cancelled Glucose Cancelled Calcium Cancelled Magnesium Cancelled Iron 24.7 L TIBC 309 % Saturation 8 Ferritin 105.00 Total Bilirubin Cancelled AST Cancelled Alkaline Phosphatase Cancelled Total Protein Cancelled Albumin Cancelled Vitamin B12 310.0 Folate 6.40 08/09/19 08/09/19 08:26 08:26 WBC 4.9 RBC 2.87 L Hgb 7.9 L Hct 24.6 L MCV 86 MCH 27.5 MCHC 32.1 RDW 15.0 H Plt Count 210 Seg Neutrophils % 74.7 Retic Count (auto) Sodium 137.3 Potassium 4.3 Chloride 102 Carbon Dioxide 26 Anion Gap 9 BUN 28 H Creatinine 1.44 H Est GFR ( Amer) 42 L Est GFR (Non-Af Amer) Glucose 87 Calcium 9.1 Magnesium 2.1 Iron TIBC % Saturation Ferritin Total Bilirubin 0.4 AST 66 H Alkaline Phosphatase 81 Total Protein 6.8 Albumin 3.7 Vitamin B12 Folate Impressions: Upper Extremity CT 08/08/19 00:00 IMPRESSION: Fracture of the distal radius with posterior displacement of the distal humeral fragment. Humeral articulation with the radius and ulnar is anatomic. Elbow X-Ray 08/08/19 14:02 IMPRESSION: There is a fracture deformity of the distal humerus; anatomy and acuity uncertain on views provided. Diffuse soft tissue swelling about the left elbow and included upper extremity. Consider CT to further evaluate. Head CT 08/08/19 16:09 IMPRESSION: CHRONIC CHANGES OF ATROPHY AND MICROVASCULAR ISCHEMIA. NO ACUTE PROCESS. EVIDENCE OF ACUTE STROKE: NO. Assessment and Plan - Diagnosis (1) Cellulitis Qualifiers: Site of cellulitis of extremity: upper extremity Laterality: left Is this a current diagnosis for this admission?: Yes Plan: Left upper extremity. There is circumferential swelling and erythema of left upper extremity from elbow to the wrist pain no improvement compared to yesterday. Neurovascularly intact. No skin compromise. No discharge or collection. No sign of compartment syndrome. Day 2 antibiotics. Day 1 p.o. Keflex. Received 1 dose of IV ceftriaxone in ED. Afebrile. WBC WNL. If significant improvement of cellulitis possible discharge tomorrow. (2) Humeral distal fracture Qualifiers: Encounter type: initial encounter Fracture type: closed Fracture morph ology: unspecified fracture morphology Laterality: left Qualified Code(s): S42.402A - Unspecified fracture of lower end of left humerus, initial encounter for closed fracture Is this a current diagnosis for this admission?: Yes Plan: Traumatic fracture of the left upper extremity. X-ray positive for fracture of distal radius with posterior displacement of the distal humeral fragment. No sign of compartment syndrome. Neurovascularly intact. Been seen and evaluated by mistake surgeon. No intervention at this point due to underlying left upper extremity swelling and cellulitis. Left upper extremity placed in sling by orthopedic surgery. Possible surgical intervention as outpatient. (3) Hypertension Is this a current diagnosis for this admission?: Yes Plan: Normotensive. Euvolemic. Continue home meds. Adjust meds as needed. PRN IV hydralazine. (4) Diabetes Is this a current diagnosis for this admission?: Yes Plan: Controlled. Takes Metformin at home. Pending A1c. Continue diabetic diet, pre-meal insulin, sliding scale insulin, Accu-Chek, glycemic protocol. Will DC home on home meds to be followed by PCP. (5) Schizophrenia Is this a current diagnosis for this admission?: Yes Plan: On olanzapine twice daily. WBC WNL, normal differential. (6) Anemia Is this a current diagnosis for this admission?: Yes Plan: Microcytic. Denies any melena, hematemesis, hemoptysis, hematochezia, vaginal bleeding. Likely due to nutritional deficiency. Low serum iron. B12 folic acid WNL. Pending guaiac. Start on ferrous sulfate p.o. Supportive transfusions. Monitor H&H. (7) Physical deconditioning Is this a current diagnosis for this admission?: Yes Plan: CT head negative for any acute changes. Chronic microvascular changes. Started PT/OT. Follow recommendation. Patient will likely benefit from transitioning to short-term rehab.
[2019-08-09] MEDS: CEPHALEXIN 500 MG CAPSULE PO SCH ×2 (13:30→21:42)
[2019-08-09] MEDS: FERROUS SULFATE 325 MG TABLET PO SCH (13:30)
[2019-08-09] MEDS: OLANZAPINE 5 MG TAB.RAPDIS PO SCH (17:11)
--- NOTE | 2019-08-09 17:22 | PDOC PROGRESS REPORT ---
Subjective Progress Note for:: 08/09/19 Subjective:: Patient lying in bed comfortably. States the pain swelling and redness have improved however patient poor historian. Family not at bedside today. Reason For Visit: LEFT HUMERAL FRACTURE,LEFT UPPER EXTREMITY CELLULI Physical Exam Vital Signs: Temp Pulse Resp BP Pulse Ox 98.6 F 76 16 140/65 H 94 08/09/19 15:40 08/09/19 16:05 08/09/19 16:05 08/09/19 15:40 08/09/19 16:05 Intake & Output 08/08/19 08/09/19 08/10/19 06:59 06:59 06:59 Intake Total 0 1000 Output Total 0 360 Balance 0 640 Weight 88.2 kg Musculoskeletal exam: PRESENT: other - Left elbow: Swelling/ecchymosis throughout the elbow with palpable effusion. Previous erythema notably improved. Compartments soft and compressible no sign of compartment syndrome. Intact IP/MP flexion/extension. No sensory deficits. Radial pulse 2+. Psychiatric exam: PRESENT: flat affect Results Laboratory Results: 08/09/19 08:26 08/09/19 08:26 08/08/19 08/09/19 08/09/19 14:32 04:10 04:10 WBC Cancelled RBC Cancelled Hgb Cancelled Hct Cancelled MCV Cancelled MCH Cancelled MCHC Cancelled RDW Cancelled Plt Count Cancelled Seg Neutrophils % Cancelled Sodium Cancelled Potassium Cancelled Chloride Cancelled Carbon Dioxide Cancelled Anion Gap Cancelled BUN Cancelled Creatinine Cancelled Est GFR ( Amer) Cancelled Est GFR (Non-Af Amer) Cancelled Glucose Cancelled Calcium Cancelled Magnesium Cancelled Iron 24.7 L TIBC 309 % Saturation 8 Ferritin 105.00 Total Bilirubin Cancelled AST Cancelled Alkaline Phosphatase Cancelled Total Protein Cancelled Albumin Cancelled Vitamin B12 310.0 Folate 6.40 08/09/19 08/09/19 08:26 08:26 WBC 4.9 RBC 2.87 L Hgb 7.9 L Hct 24.6 L MCV 86 MCH 27.5 MCHC 32.1 RDW 15.0 H Plt Count 210 Seg Neutrophils % 74.7 Sodium 137.3 Potassium 4.3 Chloride 102 Carbon Dioxide 26 Anion Gap 9 BUN 28 H Creatinine 1.44 H Est GFR ( Amer) 42 L Est GFR (Non-Af Amer) Glucose 87 Calcium 9.1 Magnesium 2.1 Iron TIBC % Saturation Ferritin Total Bilirubin 0.4 AST 66 H Alkaline Phosphatase 81 Total Protein 6.8 Albumin 3.7 Vitamin B12 Folate 08/09/19 08:26 Creatine Kinase 731 H Impressions: Upper Extremity CT 08/08/19 00:00 IMPRESSION: Fracture of the distal radius with posterior displacement of the distal humeral fragment. Humeral articulation with the radius and ulnar is anatomic. Elbow X-Ray 08/08/19 14:02 IMPRESSION: There is a fracture deformity of the distal humerus; anatomy and acuity uncertain on views provided. Diffuse soft tissue swelling about the left elbow and included upper extremity. Consider CT to further evaluate. Head CT 08/08/19 16:09 IMPRESSION: CHRONIC CHANGES OF ATROPHY AND MICROVASCULAR ISCHEMIA. NO ACUTE PROCESS. EVIDENCE OF ACUTE STROKE: NO. Assessment & Plan - Diagnosis (1) Closed fracture of left distal humerus Qualifiers: Encounter type: initial encounter Fracture morphology: other fracture Fracture alignment: displaced Qualified Code(s): S42.492A - Other displaced fracture of lower end of left humerus, initial encounter for closed fracture Is this a current diagnosis for this admission?: Yes Plan: Patient sustained a extra-articular left distal humerus fracture I have reviewed patient's CT scan which confirmed a extra-articular fracture however it is fairly distal nature would make ORIF difficult and likely not amendable and patient would be better served with total elbow arthroplasty but given most recent cellulitis along with her mental status and strict restrictions with total elbow arthroplasty patient may not be surgical candidate at this point I have recommended treating the patient with a sling to continue to monitor her swelling and redness. Patient will follow-up with me as an outpatient to discuss alternative options including operative versus nonoperative intervention.
[2019-08-09] MEDS ORDERED: OLANZAPINE 15 MG PO SCH (18:00)
[2019-08-09] MEDS: MORPHINE SULFATE 10 MG/ML INJ IV PRN (20:26)
[2019-08-09] MEDS: SIMVASTATIN 40 MG TABLET PO SCH (21:48)
[2019-08-10] MEDS: MORPHINE SULFATE 10 MG/ML INJ IV PRN ×2 (01:45→06:31)
[2019-08-10] MEDS: TEMAZEPAM 15 MG CAPSULE PO PRN ×2 (02:17→23:18)
[2019-08-10] MEDS: PANTOPRAZOLE SODIUM 40 MG TABLET.DR PO SCH ×2 (05:39→18:46)
[2019-08-10] MEDS: HEPARIN SOD (PORCINE) 5,000 UNIT/ML 1 ML VIAL SUBCUT SCH ×3 (05:39→23:08)
[2019-08-10] MEDS: CEPHALEXIN 500 MG CAPSULE PO SCH ×3 (05:40→23:09)
[2019-08-10 06:48] LABS: ABSOLUTE LYMPHOCYTES (AUTO) 0.8 10^3/uL (0.5-4.7); ABSOLUTE MONOCYTES (AUTO) 0.5 10^3/uL (0.1-1.4); ABSOLUTE NEUT (AUTO) 2.6 10^3/uL (1.7-8.2); BASOPHILS % (AUTO) 0.4 % (0-2); HEMOGLOBIN 8.1 g/dL (12.0-15.5); LYMPHOCYTES % (AUTO) 19.7 % (13-45); MEAN CORPUSCULAR HEMOGLOBIN 27.7 pg (27.0-33.4); MEAN CORPUSCULAR HGB CONC 32.6 g/dL (32.0-36.0); MEAN CORPUSCULAR VOLUME 85 fl (80-97); PLATELET COUNT 218 10^3/uL (150-450); RED BLOOD COUNT 2.94 10^6/uL (3.72-5.28); RED CELL DISTRIBUTION WIDTH 14.9 % (11.5-14.0); SEGMENTED NEUTROPHILS % (AUTO) 66.9 % (42-78); TOTAL CELLS COUNTED % (AUTO) 100 %
[2019-08-10 07:09] LABS: ALBUMIN 3.5 g/dL (3.5-5.0); ALKALINE PHOSPHATASE 80 U/L (38-126); ANION GAP 10 (5-19); ASPARTATE AMINO TRANSFERASE 55 U/L (14-36); BILIRUBIN,DIRECT 0.2 mg/dL (0.0-0.4); BILIRUBIN,TOTAL 0.4 mg/dL (0.2-1.3); BLOOD UREA NITROGEN 26 mg/dL (7-20); CALCIUM 9.2 mg/dL (8.4-10.2); CARBON DIOXIDE 26 mmol/L (22-30); CHLORIDE 99 mmol/L (98-107); GLUCOSE 93 mg/dL (75-110); POTASSIUM 4.3 mmol/L (3.6-5.0); TOTAL PROTEIN 6.5 g/dL (6.3-8.2)
[2019-08-10] MEDS: INSULIN LISPRO 100 UNIT/ML 3 ML VIAL SUBCUT SCH ×4 (08:00→23:09)
[2019-08-10] MEDS: OLANZAPINE 5 MG TAB.RAPDIS PO SCH ×2 (09:36→18:48)
[2019-08-10] MEDS: DILTIAZEM HCL 120 MG CAP.SR.24H PO SCH (09:36)
[2019-08-10] MEDS: FERROUS SULFATE 325 MG TABLET PO SCH (09:37)
[2019-08-10] MEDS: DOCUSATE SODIUM 100 MG CAPSULE PO SCH ×2 (09:38→18:46)
--- NOTE | 2019-08-10 16:58 | PDOC PROGRESS REPORT ---
Subjective Progress Note for:: 08/10/19 Subjective:: CARLOS SAMUELS is a 89 year old female past medical history of hypertension, diabetes, obesity, physical deconditioning, dementia, currently living with daughter who is out of the state and being looked after by her sister who brought her to ED. Source of history is sister. As per sister patient has chronic lower extremity weakness due to the physical deconditioning and ambulates very slowly. She had a fall 3 days ago due to underlying lower extremity weakness, landed on the left side sustaining a swelling of the left upper extremity, did not have syncope and did not have any head trauma as a result, patient family started applying ice lotions to her left upper extremity. Did not seek any medical attention until they noticed that the swelling was getting worse and she was developing erythema and warmth to the upper extremity. Patient herself is very pleasant, cooperative with physical examination, oriented to person and place, does not provide much history due to advanced dementia, complaining of left upper extremity pain and swelling, denies any f ever, chills, nausea, vomiting, diarrhea, constipation or any urinary symptoms. In ED left upper extremity showed a fracture of the humerus, orthopedic surgeon was consulted and they requested the patient to be admitted under hospital for management of underlying medical comorbidities and patient will be seen tomorrow in the hospital. On physical examination there is no other sign of trauma , except for left upper extremity swelling, erythema and warmth. Head CT negative for any acute changes . 08/09/2019. No acute events overnight. Erythema and swelling of the left upper extremity improving. Patient denies any fever, chills, nausea, vomiting, diarrhea, constipation or any urinary signs. Patient has been evaluated by orthopedic surgeon, no intervention at this point due to underlying left lower extremity cellulitis, plan is medical management this point and possible outpatient follow-up for any intervention. 08/10/2019. No acute events overnight. 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 Denies any fever, chills, nausea, vomiting, diarrhea, constipation or any urinary symptoms. Patient has qualified to be transitioned to a rehab where she can get stronger, possible transfer to rehab tomorrow. No surgery planned at this point, recommendation is to follow-up as outpatient with orthopedic surgeon. Reason For Visit: LEFT HUMERAL FRACTURE,LEFT UPPER EXTREMITY CELLULI Physical Exam Vital Signs: Temp Pulse Resp BP Pulse Ox 97.9 F 69 12 175/70 H 94 08/10/19 12:00 08/10/19 15:47 08/10/19 15:47 08/10/19 12:00 08/10/19 15:47 Intake & Output 08/09/19 08/10/19 08/11/19 06:59 06:59 06:59 Intake Total 0 1490 Output Total 0 1060 Balance 0 430 Weight 88.2 kg 87.3 kg General appearance: PRESENT: no acute distress, well-developed, well-nourished Head exam: PRESENT: atraumatic, normocephalic Respiratory exam: PRESENT: clear to auscultation neal. ABSENT: rales, rhonchi, wheezes Cardiovascular exam: PRESENT: RRR. ABSENT: diastolic murmur, rubs, systolic murmur GI/Abdominal exam: PRESENT: normal bowel sounds, soft. ABSENT: distended, gua rding, mass, organolmegaly, rebound, tenderness Musculoskeletal exam: PRESENT: other - Left upper extremity swelling, mild erythema, no skin compromise or active discharge. Results Laboratory Results: 08/10/19 06:09 08/10/19 06:09 08/10/19 08/10/19 06:09 06:09 WBC 4.0 RBC 2.94 L Hgb 8.1 L Hct 25.0 L MCV 85 MCH 27.7 MCHC 32.6 RDW 14.9 H Plt Count 218 Seg Neutrophils % 66.9 Sodium 134.9 L Potassium 4.3 Chloride 99 Carbon Dioxide 26 Anion Gap 10 BUN 26 H Creatinine 1.23 Est GFR ( Amer) 50 L Glucose 93 Calcium 9.2 Magnesium 2.2 Total Bilirubin 0.4 AST 55 H Alkaline Phosphatase 80 Total Protein 6.5 Albumin 3.5 08/09/19 08:26 Creatine Kinase 731 H Impressions: Upper Extremity CT 08/08/19 00:00 IMPRESSION: Fracture of the distal radius with posterior displacement of the distal humeral fragment. Humeral articulation with the radius and ulnar is anatomic. Elbow X-Ray 08/08/19 14:02 IMPRESSION: There is a fracture deformity of the distal humerus; anatomy and acuity uncertain on views provided. Diffuse soft tissue swelling about the left elbow and included upper extremity. Consider CT to further evaluate. Head CT 08/08/19 16:09 IMPRESSION: CHRONIC CHANGES OF ATROPHY AND MICROVASCULAR ISCHEMIA. NO ACUTE PROCESS. EVIDENCE OF ACUTE STROKE: NO. Assessment and Plan - Diagnosis (1) Cellulitis Qualifiers: Site of cellulitis of extremity: upper extremity Laterality: left Is this a current diagnosis for this admission?: Yes Plan: Left upper extremity. Upper extremity swelling and erythema improving. Neurovascularly intact. No skin compromise. No discharge or collection. No sign of compartment syndrome. Day 3 antibiotics. Day 2 p.o. Keflex. Received 1 dose of IV ceftriaxone in ED. Afebrile. WBC WNL. If significant improvement of cellulitis possible discharge tomorrow. (2) Humeral distal fracture Qualifiers: Encounter type: initial encounter Fracture type: closed Fracture morphology: unspecified fracture morphology Laterality: left Qualified Code(s): S42.402A - Unspecified fracture of lower end of left humerus, initial encounter for closed fracture Is this a current diagnosis for this admission?: Yes Plan: Traumatic fracture of the left upper extremity. X-ray positive for fracture of distal radius with posterior displacement of the distal humeral fragment. No sign of compartment syndrome. Neurovascularly intact. Been seen and evaluated by mistake surgeon. No intervention at this point due to underlying left upper extremity swelling and cellulitis. Left upper extremity placed in sling by orthopedic surgery. Possible surgical intervention as outpatient. (3) Hypertension Is this a current diagnosis for this admission?: Yes Plan: Normotensive. Euvolemic. Continue home meds. Adjust meds as needed. PRN IV hydralazine. (4) Diabetes Is this a current diagnosis for this admission?: Yes Plan: Controlled. Takes Metformin at home. A1c 5.1 Continue diabetic diet, pre-meal insulin, sliding scale insulin, Accu-Chek, glycemic protocol. Will DC home on home meds to be followed by PCP. (5) Schizophrenia Is this a current diagnosis for this admission?: Yes Plan: On olanzapine twice daily. WBC WNL, normal differential. (6) Anemia Is this a current diagnosis for this admission?: Yes Plan: Microcytic. Denies any melena, hematemesis, hemoptysis, hematochezia, vaginal bleeding. Likely due to nutritional deficiency. Low serum iron. B12 folic acid WNL. Pending guaiac. Start on ferrous sulfate p.o. Supportive transfusions. Monitor H&H. (7) Physical deconditioning Is this a current diagnosis for this admission?: Yes Plan: CT head negative for any acute changes. Chronic microvascular changes. Started PT/OT. Follow recommendation. DC to rehab if cellulitis improves tomorrow.
[2019-08-10] MEDS ORDERED: LOSARTAN POTASSIUM 50 MG TABLET PO SCH (17:00)
[2019-08-10] MEDS: SIMVASTATIN 40 MG TABLET PO SCH (23:09)
[2019-08-11] MEDS: CEPHALEXIN 500 MG CAPSULE PO SCH ×3 (06:14→21:45)
[2019-08-11] MEDS: PANTOPRAZOLE SODIUM 40 MG TABLET.DR PO SCH ×2 (06:14→18:02)
[2019-08-11] MEDS: HEPARIN SOD (PORCINE) 5,000 UNIT/ML 1 ML VIAL SUBCUT SCH ×3 (06:20→21:45)
[2019-08-11 07:05] LABS: ABSOLUTE LYMPHOCYTES (AUTO) 0.7 10^3/uL (0.5-4.7); ABSOLUTE MONOCYTES (AUTO) 0.4 10^3/uL (0.1-1.4); ABSOLUTE NEUT (AUTO) 2.3 10^3/uL (1.7-8.2); BASOPHILS % (AUTO) 0.7 % (0-2); HEMATOCRIT 26.1 % (36.0-47.0); HEMOGLOBIN 8.6 g/dL (12.0-15.5); LYMPHOCYTES % (AUTO) 19.4 % (13-45); MEAN CORPUSCULAR HGB CONC 32.9 g/dL (32.0-36.0); MEAN CORPUSCULAR VOLUME 85 fl (80-97); PLATELET COUNT 238 10^3/uL (150-450); RED BLOOD COUNT 3.07 10^6/uL (3.72-5.28); RED CELL DISTRIBUTION WIDTH 14.9 % (11.5-14.0); SEGMENTED NEUTROPHILS % (AUTO) 67.9 % (42-78); TOTAL CELLS COUNTED % (AUTO) 100 %; WHITE BLOOD COUNT 3.4 10^3/uL (4.0-10.5)
[2019-08-11 07:24] LABS: ALBUMIN 3.3 g/dL (3.5-5.0); ALKALINE PHOSPHATASE 76 U/L (38-126); ANION GAP 9 (5-19); ASPARTATE AMINO TRANSFERASE 45 U/L (14-36); BILIRUBIN,DIRECT 0.2 mg/dL (0.0-0.4); BILIRUBIN,TOTAL 0.4 mg/dL (0.2-1.3); BLOOD UREA NITROGEN 21 mg/dL (7-20); CALCIUM 9.4 mg/dL (8.4-10.2); CARBON DIOXIDE 28 mmol/L (22-30); CHLORIDE 102 mmol/L (98-107); GLUCOSE 86 mg/dL (75-110); POTASSIUM 4.3 mmol/L (3.6-5.0); TOTAL PROTEIN 6.3 g/dL (6.3-8.2)
[2019-08-11] MEDS: INSULIN LISPRO 100 UNIT/ML 3 ML VIAL SUBCUT SCH ×4 (08:23→21:46)
[2019-08-11] MEDS: DOCUSATE SODIUM 100 MG CAPSULE PO SCH ×3 (09:29→18:01)
[2019-08-11] MEDS: FERROUS SULFATE 325 MG TABLET PO SCH (09:29)
[2019-08-11] MEDS: DILTIAZEM HCL 120 MG CAP.SR.24H PO SCH (09:30)
[2019-08-11] MEDS: LOSARTAN POTASSIUM 50 MG TABLET PO SCH (09:30)
[2019-08-11] MEDS: OLANZAPINE 5 MG TAB.RAPDIS PO SCH ×2 (09:35→18:07)
[2019-08-11] MEDS ORDERED: LACTULOSE SYRUP 20 GM/30 ML UDCUP PO ONE (09:39)
[2019-08-11] MEDS ORDERED: CARVEDILOL 6.25 MG TABLET PO SCH ×3 (10:00→22:00)
[2019-08-11] MEDS ORDERED: HYDROCHLOROTHIAZIDE 25 MG TABLET PO SCH (10:30)
[2019-08-11] MEDS: HYDROCHLOROTHIAZIDE 25 MG TABLET PO SCH (12:12)
[2019-08-11] MEDS ORDERED: BISACODYL 10 MG SUPP.RECT PR ONE (15:00)
--- NOTE | 2019-08-11 16:57 | PDOC PROGRESS REPORT ---
Subjective Progress Note for:: 08/11/19 Subjective:: CARLOS SAMUELS is a 89 year old female past medical history of hypertension, diabetes, obesity, physical deconditioning, dementia, currently living with daughter who is out of the state and being looked after by her sister who brought her to ED. Source of history is sister. As per sister patient has chronic lower extremity weakness due to the physical deconditioning and ambulates very slowly. She had a fall 3 days ago due to underlying lower extremity weakness, landed on the left side sustaining a swelling of the left upper extremity, did not have syncope and did not have any head trauma as a result, patient family started applying ice lotions to her left upper extremity. Did not seek any medical attention until they noticed that the swelling was getting worse and she was developing erythema and warmth to the upper extremity. Patient herself is very pleasant, cooperative with physical examination, oriented to person and place, does not provide much history due to advanced dementia, complaining of left upper extremity pain and swelling, denies any f ever, chills, nausea, vomiting, diarrhea, constipation or any urinary symptoms. In ED left upper extremity showed a fracture of the humerus, orthopedic surgeon was consulted and they requested the patient to be admitted under hospital for management of underlying medical comorbidities and patient will be seen tomorrow in the hospital. On physical examination there is no other sign of trauma , except for left upper extremity swelling, erythema and warmth. Head CT negative for any acute changes . 08/09/2019. No acute events overnight. Erythema and swelling of the left upper extremity improving. Patient denies any fever, chills, nausea, vomiting, diarrhea, constipation or any urinary signs. Patient has been evaluated by orthopedic surgeon, no intervention at this point due to underlying left lower extremity cellulitis, plan is medical management this point and possible outpatient follow-up for any intervention. 08/10/2019. No acute events overnight. 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 Denies any fever, chills, nausea, vomiting, diarrhea, constipation or any urinary symptoms. Patient has qualified to be transitioned to a rehab where she can get stronger, possible transfer to rehab tomorrow. No surgery planned at this point, recommendation is to follow-up as outpatient with orthopedic surgeon. 08/11/2019. No acute events overnight. Erythema of left lower extremity has resolved. Improving, yeast distiller to touch, neurovascularly intact. Patient denies any fever, chills, nausea, vomiting, diarrhea, constipation or any urinary symptoms. Patient accepted to be transferred to [facility] however her blood pressure not optimized and patient not had a bowel movement the last 3 days, and [facility] would not accept her unless she had a bowel movement. Reason For Visit: LEFT HUMERAL FRACTURE,LEFT UPPER EXTREMITY CELLULI Physical Exam Vital Signs: Temp Pulse Resp BP Pulse Ox 97.6 F 74 13 174/59 H 100 08/11/19 08:16 08/11/19 08:16 08/11/19 08:16 08/11/19 08:16 08/11/19 08:16 Intake & Output 08/10/19 08/11/19 08/12/19 06:59 06:59 06:59 Intake Total 1490 860 260 Output Total 1060 2350 1000 Balance 430 -1490 -740 Weight 87.3 kg 89.1 kg General appearance: PRESENT: no acute distress, well-developed, well-nourished Head exam: PRESENT: atraumatic, normocephalic Respiratory exam: PRESENT: clear to auscultation neal. ABSENT: rales, rhonchi, wheezes Cardiovascular exam: PRESENT: RRR. ABSENT: diastolic murmur, rubs, systolic murmur GI/Abdominal exam: PRESENT: normal bowel sounds, soft. ABSENT: distended, guarding, mass, organolmegaly, rebound, tenderness Musculoskeletal exam: PRESENT: other - Swelling of the left upper extremity, tender to touch, neurovascularly intact. Neurological exam: PRESENT: alert, altered, awake, oriented to person, CN II-XII grossly intact Results Laboratory Results: 08/11/19 05:56 08/11/19 05:56 08/11/19 08/11/19 05:56 05:56 WBC 3.4 L RBC 3.07 L Hgb 8.6 L Hct 26.1 L MCV 85 MCH 28.0 MCHC 32.9 RDW 14.9 H Plt Count 238 Seg Neutrophils % 67.9 Sodium 138.7 Potassium 4.3 Chloride 102 Carbon Dioxide 28 Anion Gap 9 BUN 21 H Creatinine 0.91 Est GFR ( Amer) > 60 Glucose 86 Calcium 9.4 Magnesium 2.0 Total Bilirubin 0.4 AST 45 H Alkaline Phosphatase 76 Total Protein 6.3 Albumin 3.3 L 08/09/19 08:26 Creatine Kinase 731 H Impressions: Upper Extremity CT 08/08/19 00:00 IMPRESSION: Fracture of the distal radius with posterior displacement of the distal humeral fragment. Humeral articulation with the radius and ulnar is anatomic. Elbow X-Ray 08/08/19 14:02 IMPRESSION: There is a fracture deformity of the distal humerus; anatomy and acuity uncertain on views provided. Diffuse soft tissue swelling about the left elbow and included upper extremity. Consider CT to further evaluate. Head CT 08/08/19 16:09 IMPRESSION: CHRONIC CHANGES OF ATROPHY AND MICROVASCULAR ISCHEMIA. NO ACUTE PROCESS. EVIDENCE OF ACUTE STROKE: NO. Assessment and Plan - Diagnosis (1) Cellulitis Qualifiers: Site of cellulitis of extremity: upper extremity Laterality: left Is this a current diagnosis for this admission?: Yes Plan: Left upper extremity. Moderate improvement. Erythema has resolved. Swelling improving. squeegee tender to palpation. Neurovascularly intact. No skin compromise. No discharge or collection. No sign of compartment syndrome. Day 4 antibiotics. Day 3 p.o. Keflex. Received 1 dose of IV ceftriaxone in ED. Afebrile. WBC WNL. If significant improvement of cellulitis possible discharge tomorrow. (2) Humeral distal fracture Qualifiers: Encounter type: initial encounter Fracture type: closed Fracture morphology: unspecified fracture morphology Laterality: left Qualified Code(s): S42.402A - Unspecified fracture of lower end of left humerus, initial encounter for closed fracture Is this a current diagnosis for this admission?: Yes Plan: Traumatic fracture of the left upper extremity. X-ray positive for fracture of distal radius with posterior displacement of the distal humeral fragment. No sign of compartment syndrome. Neurovascularly intact. Been seen and evaluated by mistake surgeon. No intervention at this point due to underlying left upper extremity swelling and cellulitis. Left upper extremity placed in sling by orthopedic surgery. Possible surgical intervention as outpatient. (3) Hypertension Is this a current diagnosis for this admission?: Yes Plan: Not optimized. Appears euvolemic. Continue nifedipine. Restart hydrochlorothiazide losartan. IV PRN hydralazine. (4) Diabetes Is this a current diagnosis for this admission?: Yes Plan: Controlled. Takes Metformin at home. A1c 5.1 Continue diabetic diet, pre-meal insulin, sliding scale insulin, Accu-Chek, glycemic protocol. Will DC home on home meds to be followed by PCP. (5) Schizophrenia Is this a current diagnosis for this admission?: Yes Plan: On olanzapine twice daily. WBC WNL, normal differential. (6) Anemia Is this a current diagnosis for this admission?: Yes Plan: Microcytic. Likely chronic. Denies any melena, hematemesis, hemoptysis, hematochezia, vaginal bleeding. Likely due to nutritional deficiency. Low serum iron. B12 folic acid WNL. Pending guaiac. She has not had a bowel movement. Continue ferrous sulfate p.o. Supportive transfusions. Monitor H&H. (7) Physical deconditioning Is this a current diagnosis for this admission?: Yes Plan: CT head negative for any acute changes. Chronic microvascular changes. Started PT/OT. Follow recommendation. DC to rehab if cellulitis improves tomorrow.
[2019-08-11] MEDS ORDERED: ATORVASTATIN CALCIUM 40 MG TABLET PO SCH (22:00)
[2019-08-12] MEDS: HEPARIN SOD (PORCINE) 5,000 UNIT/ML 1 ML VIAL SUBCUT SCH ×2 (05:45→14:22)
[2019-08-12] MEDS: CEPHALEXIN 500 MG CAPSULE PO SCH ×2 (05:46→14:53)
[2019-08-12] MEDS: PANTOPRAZOLE SODIUM 40 MG TABLET.DR PO SCH ×2 (05:47→17:22)
[2019-08-12] MEDS ORDERED: BISACODYL 10 MG SUPP.RECT PR ONE (07:04)
[2019-08-12] MEDS: INSULIN LISPRO 100 UNIT/ML 3 ML VIAL SUBCUT SCH ×3 (08:51→16:47)
[2019-08-12] MEDS: MORPHINE SULFATE 10 MG/ML INJ IV PRN (08:58)
[2019-08-12] MEDS ORDERED: CARVEDILOL 6.25 MG TABLET PO SCH (10:00)
[2019-08-12] MEDS ORDERED: AMLODIPINE BESYLATE 10 MG TABLET PO SCH (10:00)
[2019-08-12] MEDS: FERROUS SULFATE 325 MG TABLET PO SCH (10:00)
[2019-08-12] MEDS: DOCUSATE SODIUM 100 MG CAPSULE PO SCH ×2 (10:00→17:22)
[2019-08-12] MEDS: HYDROCHLOROTHIAZIDE 25 MG TABLET PO SCH (10:00)
[2019-08-12] MEDS ORDERED: CHLORTHALIDONE 25 MG TABLET PO SCH (10:00)
[2019-08-12] MEDS ORDERED: DILTIAZEM HCL 180 MG CAPSULE.CR PO SCH (10:00)
[2019-08-12] MEDS: OLANZAPINE 5 MG TAB.RAPDIS PO SCH ×2 (10:01→17:22)
[2019-08-12] MEDS: LOSARTAN POTASSIUM 50 MG TABLET PO SCH (10:01)
--- NOTE | 2019-08-12 11:38 | PDOC TRANSFER SUMMARY ---
General Admission Date/PCP: 08/08/19 16:26 - Transfer Diagnosis (1) Cellulitis Is this a current diagnosis for this admission?: Yes (2) Humeral distal fracture Is this a current diagnosis for this admission?: Yes (3) Hypertension Is this a current diagnosis for this admission?: Yes (4) Diabetes Is this a current diagnosis for this admission?: Yes (5) Schizophrenia Is this a current diagnosis for this admission?: Yes (6) Anemia Is this a current diagnosis for this admission?: Yes (7) Physical deconditioning Is this a current diagnosis for this admission?: Yes (8) Decubitus ulcer, stage II Is this a current diagnosis for this admission?: Yes - Transfer Medications Home Medications: Diltiazem HCl [Diltiazem 24Hr ER] 360 mg PO DAILY 08/08/19 Meloxicam [Mobic] 15 mg PO QPM 08/08/19 Metformin HCl [Glucophage 500 mg Tablet] 500 mg PO BID 08/08/19 Olanzapine [Olanzapine Odt] 15 mg PO BID 08/08/19 Potassium Chloride [Klor-Con 10 Meq Capsule ER] 10 meq PO BID 08/08/19 Simvastatin [Zocor 40 mg Tablet] 40 mg PO QHS 08/08/19 Transfer Medications: Current Medications Acetaminophen (Tylenol 325 Mg Tablet) 325 mg PO Q4HP PRN PRN Reason: FEVER >101 Stop: 09/07/19 16:00 Last Admin: 08/10/19 23:18 Dose: 325 mg Documented by: Albuterol/Ipratropium (Duoneb 3 Ml Ampul) 3 ml NEB RTQ6HP PRN PRN Reason: SHORTNESS OF BREATH Stop: 09/07/19 16:00 Atorvastatin Calcium (Lipitor 40 Mg Tablet) 40 mg PO QHS [facility] Stop: 09/10/19 21:59 Last Admin: 08/11/19 21:47 Dose: 40 mg Documented by: Carvedilol (Coreg 6.25 Mg Tablet) 12.5 mg PO Q12 YUSUF Stop: 09/11/19 09:59 Last Admin: 08/12/19 10:00 Dose: 12.5 mg Documented by: Cephalexin HCl (Keflex 500 Mg Capsule) 500 mg PO Q8 YUSUF Stop: 08/16/19 13:59 Last Admin: 08/12/19 05:46 Dose: 500 mg Documented by: Chlorthalidone (Hygroton 25 Mg Tablet) 25 mg PO DAILY YUSUF Stop: 09/11/19 09:59 Last Admin: 08/12/19 10:01 Dose: 25 mg Documented by: Dextrose (Dextrose Inj 50% Syringe (25 Gm/50 Ml)) 12.5 gm IV PRN PRN; Protocol PRN Reason: FOR BG 50-69 IN ALERT PATIENT Stop: 09/07/19 16:06 Dextrose (Dextrose Inj 50% Syringe (25 Gm/50 Ml)) 25 gm IV PRN PRN; Protocol PRN Reason: PER PROTOCOL Stop: 09/07/19 16:06 Diltiazem HCl (Cardizem Cd 180 Mg Capsule) 360 mg PO DAILY YUSUF Stop: 09/11/19 09:59 Last Admin: 08/12/19 10:01 Dose: 360 mg Documented by: Docusate Sodium (Colace 100 Mg Capsule) 200 mg PO BID YUSUF Stop: 09/10/19 09:59 Last Admin: 08/12/19 10:00 Dose: 200 mg Documented by: Ferrous Sulfate (Feosol 325 Mg Tablet) 325 mg PO DAILY YUSUF Stop: 09/08/19 13:59 Last Admin: 08/12/19 10:00 Dose: 325 mg Documented by: Glucagon (Glucagen Inj 1 Mg Vial) 1 mg IM PRN PRN; Protocol PRN Reason: Evaluate for BG < 70 Stop: 09/07/19 16:06 Glucose (Glutose 40% Gel 15 Gm Tube) 15 gm PO PRN PRN; Protocol PRN Reason: FOR BG 50-69 IN ALERT PATIENT Stop: 09/07/19 16:06 Glucose (Glutose 40% Gel 15 Gm Tube) 30 gm PO PRN PRN; Protocol PRN Reason: FOR BG < 50 IN ALERT PATIENT Stop: 09/07/19 16:06 Guaifenesin/Dextromethorphan (Robitussin-Dm Syrup 10 Ml Udcup) 10 ml PO QIDP PRN PRN Reason: COUGH Stop: 09/07/19 16:09 Heparin Sodium (Porcine) (Heparin Inj 5,000 Units/Ml 1 Ml Vial) 5,000 unit SUBCUT Q8 YUSUF Stop: 09/07/19 21:59 Last Admin: 08/12/19 05:45 Dose: 5,000 unit Documented by: Hydralazine HCl (Apresoline Inj/Pf 20 Mg/1 Ml Sdv) 10 mg IV Q3HP PRN PRN Reason: Give For Sbp > [150] Stop: 09/07/19 16:07 Hydrochlorothiazide (Hydrodiuril 25 Mg Tablet) 25 mg PO DAILY [facility] Stop: 09/10/19 10:59 Last Admin: 08/12/19 10:00 Dose: 25 mg Documented by: Insulin Human Lispro (Humalog Insulin 100 Unit/1 Ml 3 Ml Vial) 0 - 12 unit SUBCUT [facility]; Protocol Stop: 09/07/19 21:59 Last Admin: 08/12/19 08:51 Dose: Not Given Documented by: Losartan Potassium (Cozaar 50 Mg Tablet) 100 mg PO DAILY [facility] Stop: 09/10/19 09:59 Last Admin: 08/12/19 10:01 Dose: 100 mg Documented by: Morphine Sulfate (Morphine 10 Mg/Ml Inj) 2 mg IV Q4HP PRN PRN Reason: FOR PAIN SCALE 4-5 Stop: 08/15/19 16:09 Last Admin: 08/12/19 08:58 Dose: 2 mg Documented by: Olanzapine (Zyprexa Zydis 5 Mg Odt Tablet) 15 mg PO BID [facility] Stop: 09/08/19 17:59 Last Admin: 08/12/19 10:01 Dose: 15 mg Documented by: Ondansetron HCl (Zofran Inj/Pf 4 Mg/2 Ml Sdv) 4 mg IV Q4HP PRN PRN Reason: FOR NAUSEA/VOMITING Stop: 09/07/19 16:00 Last Admin: 08/09/19 20:26 Dose: 4 mg Documented by: Oxycodone/Acetaminophen (Percocet 5-325 Mg Tablet) 1 tab PO Q4HP PRN PRN Reason: FOR PAIN SCALE 3-4 Stop: 08/15/19 16:00 Last Admin: 08/09/19 14:04 Dose: 1 tab Documented by: Pantoprazole Sodium (Protonix [address] Tablet) 40 mg PO BID@0600,1700 [facility] Stop: 09/07/19 16:59 Last Admin: 08/12/19 05:47 Dose: 40 mg Documented by: Temazepam (Restoril 15 Mg Capsule) 15 mg PO HSP PRN PRN Reason: SLEEP OR INSOMNIA Stop: 08/15/19 16:00 Last Admin: 08/10/19 23:18 Dose: 15 mg Documented by: - Allergies Allergies/Adverse Reactions: No Known Allergies Allergy (Unverified 08/08/19 16:29) Hospital Course Hospital Course: CARLOS SAMUELS is a 89 year old female past medical history of hypertension, diabetes, obesity, physical deconditioning, dementia, currently living with daughter who is out of the state and being looked after by her sister who brought her to ED. Source of history is sister. As per sister patient has chronic lower extremity weakness due to the physical deconditioning and ambulates very slowly. She had a fall 3 days ago due to underlying lower extremity weakness, landed on the left side sustaining a swelling of the left upper extremity, did not have syncope and did not have any head trauma as a result, patient family started applying ice lotions to her left upper extremity. Did not seek any medical attention until they noticed that the swelling was getting worse and she was developing erythema and warmth to the upper extremity. (1) Cellulitis Left upper extremity. Moderate improvement. Erythema has resolved. Swelling improving. singer back tender to palpation. Neurovascularly intact. No skin compromise. No discharge or collection. No sign of compartment syndrome. Remained afebrile. WBC WNL. Cultures negative. Received 5 days of antibiotics. Received 4 days of Keflex p.o. Received 1 dose of IV ceftriaxone in ED. Continue Keflex 500 p.o. twice daily for another 5 days. If worsening of cellulitis and signs of any other infection patient needs to be sent back to ED or PCP for reevaluation. (2) Humeral distal fracture Traumatic fracture of the left upper extremity. Due to a fall at home most likely due to physical deconditioning. CT head negative. X-ray positive for fracture of distal radius with posterior displacement of the distal humeral fragment. No sign of compartment syndrome. Neurovascularly intact. Orthopedic surgery consulted, no intervention at this point due to underlying left upper extremity swelling and cellulitis. Left upper extremity placed in sling by orthopedic surgery. Patient is to follow-up with Dr. Zamudio as outpatient for evaluation of her left upper extremity for possible intervention versus medical management. (3) Hypertension Controlled. Euvolemic. Difficult to control hypertension. Patient's home medications are hydrochlorothiazide, losartan, nifedipine. Hydrochlorothiazide and losartan were held due to TIMOTHY. Nifedipine p.o. and PRN IV hydralazine were started. Losartan restarted after TIMOTHY improved. Hydrochlorothiazide was switched with chlorthalidone as chlorthalidone is longer acting. Also added Coreg 6.25 twice daily. Patient is to follow-up with PCP for readjustment of her antihypertensives. (4) Diabetes Controlled. Takes Metformin at home. A1c 5.1 Started diabetic diet, pre-meal insulin, sliding scale insulin, Accu-Chek, glycemic protocol. Start metformin upon discharge. Follow-up with PCP. (5) Schizophrenia On olanzapine twice daily. WBC WNL, normal differential. (6) Anemia Microcytic. Likely chronic due to poor p.o. intake. Guaiac negative. Iron 24. TIBC, ferritin, saturation WNL. B12 folic acid WNL. Denied any melena, hematemesis, hemoptysis, hematochezia, vaginal bleeding. Continue ferrous sulfate p.o. outpatient PCP follow-up. (7) Physical deconditioning Chronic. This may have contributed to her fall. CT head negative for any acute changes. Chronic microvascular changes. Started PT/OT, recommendations are for rehab. Patient will need rehab in the home of improving her physical deconditioning and decreasing the chances of future falls. (8) Decubitus ulcer, stage 2 Decubitus ulcer prevention measures were provided. Physical Exam Vital Signs: Temp Pulse Resp BP Pulse Ox 99.6 F 74 16 185/54 H 94 08/12/19 07:46 08/12/19 07:46 08/12/19 07:46 08/12/19 07:46 08/12/19 07:46 Intake & Output 08/11/19 08/12/19 08/13/19 06:59 06:59 06:59 Intake Total 860 260 Output Total 2350 1000 Balance -1490 -740 Weight 89.1 kg 89.1 kg General appearance: PRESENT: no acute distress, well-developed, well-nourished Respiratory exam: PRESENT: clear to auscultation neal. ABSENT: rales, rhonchi, wheezes Cardiovascular exam: PRESENT: RRR. ABSENT: diastolic murmur, rubs, systolic murmur GI/Abdominal exam: PRESENT: normal bowel sounds, soft. ABSENT: distended, guarding, mass, organolmegaly, rebound, tenderness Extremities exam: PRESENT: other - LLE swelling, no erythema, no dischage, pulses intact. Neurological exam: PRESENT: alert, awake, oriented to person, CN II-XII grossly intact Skin exam: PRESENT: other - non infected stage two decubitus ulcer. Results Laboratory Results: 08/11/19 05:56 08/11/19 05:56 08/09/19 08:26 Creatine Kinase 731 H Impressions: Upper Extremity CT 08/08/19 00:00 IMPRESSION: Fracture of the distal radius with posterior displacement of the distal humeral fragment. Humeral articulation with the radius and ulnar is anatomic. Elbow X-Ray 08/08/19 14:02 IMPRESSION: There is a fracture deformity of the distal humerus; anatomy and acuity uncertain on views provided. Diffuse soft tissue swelling about the left elbow and included upper extremity. Consider CT to further evaluate. Head CT 08/08/19 16:09 IMPRESSION: CHRONIC CHANGES OF ATROPHY AND MICROVASCULAR ISCHEMIA. NO ACUTE PROCESS. EVIDENCE OF ACUTE STROKE: NO.
[2019-08-12 15:45] VITALS: BP 124/48
[2019-08-12] MEDS: OXYCODONE-ACETAMINOPHEN 5-325 MG TABLET PO PRN (19:24)
== END 2019-08-12 19:32 | DRG 563 ==
LOC: ER 13:52 → EH 16:26 → 5 21:30
PROVIDERS: ADMIT Internal Medicine; ATTEND Internal Medicine
DX: S42.402A Unspecified fracture of lower end of left humerus, initial encounter for closed fracture (principal); L03.114 Cellulitis of left upper limb; I10 Essential (primary) hypertension; E11.8 Type 2 diabetes mellitus with unspecified complications; D64.9 Anemia, unspecified; F20.9 Schizophrenia, unspecified; W18.39XA Other fall on same level, initial encounter; Y93.89 Activity, other specified; Y92.89 Other specified places as the place of occurrence of the external cause; Z79.84 Long term (current) use of oral hypoglycemic drugs; Z79.899 Other long term (current) drug therapy
CPT/HCPCS: 36415; 70450; 80053; 82272; 82550; 82607; 82728; 82746; 82962; 83036; 83540; 83550; 83735; 85025; 85045; 85610; 87040; 99285; J1644; J1815; J2270; J2405; J3490; J7030

== ENCOUNTER 2019-10-04 18:05 | Emergency (ER) | payer MEDICARE, MEDICAID ==
[2019-10-04] MEDS ORDERED: NORMAL SALINE 1000 ML 1,000 ML IV ONE (19:18)
--- NOTE | 2019-10-04 19:22 | ER Document Report ---
ED General - General Chief Complaint: Abnormal Lab Results Stated Complaint: ABNORMAL LABS Time Seen by Provider: 10/04/19 18:52 Primary Care Provider: CRISTELA SOSA MD [Primary Care Provider] - Follow up as needed Notes: 89 year old female arrives from [facility] with ? of GI bleed. There was reportedly no bleeding noted but she looked pale and hgb She reportedly has dropped her hemoglobin. She is elderly, frail and bedridden and has known left arm/ elbow fractures that are being managed with an teri wrap. Broke that arm in Jul reportedly. She has a h/o rectal cancer and surgery/ chemo. Additionally she has a h/o htn, dm and schizophrenia. No fever or recent illness reportedly. TRAVEL OUTSIDE OF THE [place] IN LAST 30 DAYS: No - Related Data Allergies/Adverse Reactions: No Known Allergies Allergy (Unverified 08/08/19 16:29) Past Medical History - Social History Smoking Status: Never Smoker Family History: Reviewed & Not Pertinent Patient has suicidal ideation: No Patient has homicidal ideation: No - Past Medical History Cardiac Medical History: Reports: Hx Hypertension Denies: Hx Coronary Artery Disease, Hx Heart Attack Pulmonary Medical History: Reports: Hx Bronchitis Denies: Hx Asthma, Hx COPD, Hx Pneumonia Neurological Medical History: Denies: Hx Cerebrovascular Accident, Hx Seizures Musculoskeletal Medical History: 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 - Immunizations Hx Diphtheria, Pertussis, Tetanus Vaccination: No Review of Systems - Review of Systems Constitutional: No symptoms reported EENT: No symptoms reported Cardiovascular: No symptoms reported Respiratory: No symptoms reported Gastrointestinal: No symptoms reported Genitourinary: No symptoms reported Female Genitourinary: No symptoms reported Musculoskeletal: No symptoms reported Skin: No symptoms reported Hematologic/Lymphatic: No symptoms reported Neurological/Psychological: No symptoms reported Physical Exam - Vital signs Vitals: Resp Pulse Ox 15 97 10/04/19 18:21 10/04/19 18:21 Course - Re-evaluation Re-evalutation: 10/04/19 20:56 MDM 89 year old sent over for ? of anemia and ? GI bleed. No evidence of bleeding here. Hgb a bit low but right where it has been. I discussed this with family and she has no abd pain at this time has been eating well and I feel she is safe for follow up. This has been discussed with the family as well and they expressed understanding. We will reccomend close recheck. - Vital Signs Vital signs: Temp Pulse Resp BP Pulse Ox 98.0 F 14 178/67 H 99 10/04/19 19:42 10/04/19 19:42 10/04/19 19:42 10/04/19 19:42 - Laboratory Result Diagrams: 10/04/19 20:00 10/04/19 20:00 Laboratory results interpreted by me: 10/04/19 10/04/19 20:00 20:00 WBC 3.9 L RBC 2.91 L Hgb 8.4 L Hct 25.3 L RDW 15.7 H Sodium 131.2 L Chloride 94 L BUN 31 H Creatinine 1.43 H Est GFR ( Amer) 42 L Est GFR (MDRD) Non-Af 35 L - Diagnostic Test Radiology reviewed: Image reviewed, Reports reviewed Discharge - Discharge Clinical Impression: Weakness Anemia Qualifiers: Anemia type: unspecified type Qualified Code(s): D64.9 - Anemia, unspecified Condition: Fair Disposition: HOME, SELF-CARE Instructions: Anemia ([facility]), Weakness ([facility]) Additional Instructions: Your hemoglobin was what is has been. Have it rechecked next week. Return here for dizziness, chest pain, bleeding or any other problems or concerns. Take your regular medicines as directed. Referrals: CRISTELA SOSA MD [Primary Care Provider] - Follow up as needed
--- NOTE | 2019-10-04 20:04 | RADIOLOGY REPORT (SQ) ---
EXAM DESCRIPTION: CHEST SINGLE VIEW COMPLETED DATE/TIME: 10/04/2019 7:38 pm REASON FOR STUDY: cough COMPARISON: 06/16/2014 TECHNIQUE: Single frontal radiographic view of the chest acquired. NUMBER OF VIEWS: One view. LIMITATIONS: None. FINDINGS: LUNGS AND PLEURA: No pneumothorax. No consolidation or pleural effusion. MEDIASTINUM AND HILAR STRUCTURES: Stable. HEART AND VASCULAR STRUCTURES: Stable. BONES: No acute findings. HARDWARE: Right chest port, stable. OTHER: No other significant finding. IMPRESSION: NO ACUTE FINDINGS. TECHNICAL DOCUMENTATION: JOB ID: [id number] [place]-72 2010 [employer]- All Rights Reserved Reading location - IP/workstation name: [email or web address]
[2019-10-04 20:19] LABS: ABSOLUTE LYMPHOCYTES (AUTO) 0.7 10^3/uL (0.5-4.7); ABSOLUTE MONOCYTES (AUTO) 0.4 10^3/uL (0.1-1.4); ABSOLUTE NEUT (AUTO) 2.9 10^3/uL (1.7-8.2); BASOPHILS % (AUTO) 0.2 % (0-2); EOSINOPHILS % (AUTO) 0.1 % (0-6); HEMATOCRIT 25.3 % (36.0-47.0); HEMOGLOBIN 8.4 g/dL (12.0-15.5); INTERNATIONAL RATION (INR) 1.03; LYMPHOCYTES % (AUTO) 17.2 % (13-45); MEAN CORPUSCULAR HGB CONC 33.4 g/dL (32.0-36.0); MEAN CORPUSCULAR VOLUME 87 fl (80-97); MONOCYTES % (AUTO) 9.5 % (3-13); PLATELET COUNT 227 10^3/uL (150-450); PROTHROMBIN TIME 13.5 SEC (11.4-15.4); RED BLOOD COUNT 2.91 10^6/uL (3.72-5.28); RED CELL DISTRIBUTION WIDTH 15.7 % (11.5-14.0); TOTAL CELLS COUNTED % (AUTO) 100 %; WHITE BLOOD COUNT 3.9 10^3/uL (4.0-10.5)
[2019-10-04 20:36] LABS: ALBUMIN 3.6 g/dL (3.5-5.0); ALKALINE PHOSPHATASE 118 U/L (38-126); ANION GAP 9 (5-19); ASPARTATE AMINO TRANSFERASE 18 U/L (14-36); BILIRUBIN,DIRECT 0.1 mg/dL (0.0-0.4); BILIRUBIN,TOTAL 0.5 mg/dL (0.2-1.3); BLOOD UREA NITROGEN 31 mg/dL (7-20); CALCIUM 9.3 mg/dL (8.4-10.2); CARBON DIOXIDE 28 mmol/L (22-30); CHLORIDE 94 mmol/L (98-107); GLUCOSE 94 mg/dL (75-110); TOTAL PROTEIN 6.9 g/dL (6.3-8.2)
[2019-10-04 22:29] VITALS: BP 152/76
--- NOTE | 2019-10-04 22:49 | EKG REPORT ---
SEVERITY:- ABNORMAL ECG - SINUS RHYTHM 65. LEFT ANTERIOR FASCICULAR BLOCK LEFT VENTRICULAR HYPERTROPHY : Confirmed by: Elton Root MD 04-Oct-2019 22:48:43
== END 2019-10-04 22:00 | disposition home or self-care (01) ==
LOC: ER 18:05
DX: D64.9 Anemia, unspecified (principal); R53.1 Weakness; I10 Essential (primary) hypertension; E11.9 Type 2 diabetes mellitus without complications; Z74.01 Bed confinement status; Z85.048 Personal history of other malignant neoplasm of rectum, rectosigmoid junction, and anus; Z92.21 Personal history of antineoplastic chemotherapy
CPT/HCPCS: 93005; 99285; 96360; 96361; 86900; 86901; 36415; 86850; 85025; 85610; 80053; 84484; 71045; 93010; J7030

== ENCOUNTER 2019-12-07 23:18 | Emergency (ER) | payer MEDICARE, MEDICAID ==
[2019-12-08] MEDS ORDERED: MIDAZOLAM 2 MG/2 ML INJ IV ONE (00:28)
--- NOTE | 2019-12-08 00:31 | RADIOLOGY REPORT (SQ) ---
EXAM DESCRIPTION: CT HEAD WITHOUT IV CONTRAST COMPLETED DATE/TME: 12/07/2019 00:00 CLINICAL HISTORY: 89 years, Female, unresponsive COMPARISON: 08/08/2019 CT TECHNIQUE: 209 Images stored on PACS. All CT scanners at this facility use dose modulation, iterative reconstruction, and/or weight based dosing when appropriate to reduce radiation dose to as low as reasonably achievable (ALARA). [facility]: Dose Right [facility]: CareDose [facility]: Dose Right [facility]: Teradose 4D [facility]: [employer] LIMITATIONS: None. FINDINGS: Partial visualization of endotracheal and enteric tubes. The globes are intact. The paranasal sinuses and mastoid air cells are unremarkable. There is no displaced or depressed skull fracture. There is no intra or extra-axial hemorrhage. Diffuse age-appropriate atrophy. CT is limited for evaluation of acute infarct. There is no CT evidence for large or territorial acute infarct. Minor small vessel ischemic change. No mass. No midline shift IMPRESSION: Atrophy. Small vessel ischemic change. TECHNICAL DOCUMENTATION: Quality ID # [id number]: Final reports with documentation of one or more dose reduction techniques (e.g., Automated exposure control, adjustment of the mA and/or kV according to patient size, use of iterative reconstruction technique) copyright 2010 [employer]- All Rights Reserved
--- NOTE | 2019-12-08 00:35 | ER Document Report ---
ED General - General Chief Complaint: Unresponsive Stated Complaint: UNRESPONSIVE Time Seen by Provider: 12/07/19 23:35 Primary Care Provider: CRISTELA SOSA MD [Primary Care Provider] - Follow up as needed Mode of Arrival: Medic Information source: Emergency Med Personnel TRAVEL OUTSIDE OF THE [place] IN LAST 30 DAYS: No - HPI Notes: Patient was brought from a long term due to bradycardic arrest. Paramedics state that they received a call from long term the patient was in cardiac arrest. They state when they arrived patient was minimally responsive with a heart rate of 24. They state that they gave the patient 1/2 of amp of atropine and externally paced the patient and brought her to the emergency department. They state that in route patient became less responsive but they had good capture. There is been no known recent falls trauma. No known vomiting or diarrhea. Patient is not able to participate in the history. I did discuss the case with family and they state they saw the patient earlier today and they felt that she was very somnolent and hard to arouse. They state normally patient is talkative and eating and drinking. They state today when I saw her she was slumped over in a chair with her teeth falling out of her mouth. They state that she was only minimally responsive and would not talk to them I would not eat or drink for them. Patient symptoms were severe. They were constant. They radiate throughout her body. They got better with ACLS protocol and pacing. They were worse without this. - Related Data Allergies/Adverse Reactions: No Known Allergies Allergy (Unverified 08/08/19 16:29) Past Medical History - General Information source: Emergency Med Personnel - Social History Smoking Status: Former Smoker Frequency of alcohol use: None Drug Abuse: None Family History: Reviewed & Not Pertinent Patient has suicidal ideation: No Patient has homicidal ideation: No - Past Medical History Cardiac Medical History: Reports: Hx Hypertension Denies: Hx Coronary Artery Disease, Hx Heart Attack Pulmonary Medical History: Reports: Hx Bronchitis Denies: Hx Asthma, Hx COPD, Hx Pneumonia Neurological Medical History: Denies: Hx Cerebrovascular Accident, Hx Seizures Musculoskeletal Medical History: 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 - Immunizations Hx Diphtheria, Pertussis, Tetanus Vaccination: No Review of Systems - Review of Systems -: Yes ROS unobtainable due to patient's medical condition - Patient's review of symptoms or not obtainable due to cardiac arrest Physical Exam - Vital signs Vitals: Resp 19 12/07/19 23:21 Interpretation: Normal - General General appearance: Unresponsive In distress: Severe - HEENT Head: Normocephalic, Atraumatic Eyes: Normal Pupils: Pinpoint - Respiratory Respiratory status: Agonal respirations Chest status: No: Ecchymosis Breath sounds: Decreased air movement Chest palpation: No: Flail segment, Road Runner frothy sputum - Cardiovascular Rhythm: Other - Heart sounds are distant as patient is being paced Murmur: No Pulses: Bounding: Femoral, Absent: Radial - Abdominal Inspection: Normal Distension: No distension Bowel sounds: Hypoactive Organomegaly: No organomegaly - Back Back: Normal. No: Deformity/step-off, Wounds - Extremities General upper extremity: Normal inspection, Normal color, Normal temperature General lower extremity: Normal inspection, Normal color, Normal temperature. No: Kimberley's sign - Neurological Neuro grossly intact: Yes Orientation: Disoriented to person, Disoriented to place, Disoriented to time, Disoriented to events [place] Coma Scale Eye Opening: None [place] Coma Scale Verbal: None Earl Coma Scale Motor: None Earl Coma Scale Total: 3 - Psychological Associated symptoms: Psychomotor depression, Uncooperative - Skin Skin Temperature: Warm Skin Moisture: Dry Skin Color: Normal Course - Re-evaluation Re-evalutation: 12/08/19 00:35 Patient reevaluated approximate 12:30 AM. At this time patient is awake and looking at me when I speak in her eyes will follow voice. However she will not follow any other commands. Patient's blood pressure is stable. She is still being paced with a rate of approximately 70. Patient's O2 sat is 100% on ventilator. Her temperature was low at 91. - Vital Signs Vital signs: Temp Pulse Resp BP Pulse Ox 92.1 F L 19 122/70 98 12/07/19 23:51 12/07/19 23:56 12/07/19 23:56 12/07/19 23:51 - Diagnostic Test Radiology reviewed: Image reviewed, Reports reviewed Procedures - Intubation Orotracheal Time of Intubation: 23:30 Airway evaluation: Large tongue, Obese Mallampati Classification: Class 2 Intubation method: Orotracheal Blade type: Clayton Blade size: 4 Equipment used: Glidescope ETT size: 7.5 ETT secured at: Gums ETT secured at (cm): 23 Breath Sounds after Intubation: Equal End tidal CO2 confirmed: Yes Post Intubation Xray: Yes - Good position Intubation Complications: No complications - Additional Procedures External pacing Time performed: 23:30 Critical Care Note - Critical Care Note Total time excluding time spent on procedures (mins): 80 Comments: Approximately 80 minutes of critical care time were spent on this patient. This included multiple reassessments. It included discussions with consultants. It included reviewing old records. It included discussions with family. It included reviewing labs and imaging. Discharge - Discharge Clinical Impression: Cardiac arrest Condition: Critical Disposition: [facility] Referrals: CRISTELA SOSA MD [Primary Care Provider] - Follow up as needed
--- NOTE | 2019-12-08 00:38 | RADIOLOGY REPORT (SQ) ---
CLINICAL HISTORY: cardiac arrest COMPARISON: None. TECHNIQUE: CT CHEST ANGIOGRAPHY WITHOUT THEN WITH IV CONTRAST on 12/07/2019 11:55 PM LICENSE CLERK. MIPS reconstructions were generated. This exam was performed according to our departmental dose-optimization program, which includes automated exposure control, adjustment of the mA and/or kV according to patient size and/or use of iterative reconstruction technique. MIP images were generated. FINDINGS: Thoracic aorta is normal in course and caliber without aneurysm or dissection. Pulmonary arteries are somewhat poorly opacified with no large or central filling defects. The heart is moderately enlarged. There is no pericardial effusion. Intrathoracic lymph nodes are not enlarged. Right chest port is in place. Endotracheal tube tip is in the lower third of the trachea. There is a small right pleural effusion. Central airways are patent. There is patchy mostly right lower lobe atelectasis. There are no acute abnormalities within the limited images of the upper abdomen. There are several old appearing rib fractures laterally. IMPRESSION: Cardiomegaly with right pleural effusion and probable right basilar atelectasis. No aortic dissection or aneurysm. No large or central pulmonary embolus.
[2019-12-08 01:53] VITALS: BP 137/81
--- NOTE | 2019-12-08 08:22 | RADIOLOGY REPORT (SQ) ---
EXAM DESCRIPTION: CHEST SINGLE VIEW COMPLETED DATE/TIME: 12/08/2019 12:12 am REASON FOR STUDY: PORT COMPARISON: 10/04/2020. NUMBER OF VIEWS: One view. TECHNIQUE: Single frontal radiographic view of the chest acquired. LIMITATIONS: The left lung base is partially obscured by overlying defibrillator pads. FINDINGS: LUNGS AND PLEURA: No opacities, masses or pneumothorax. No pleural effusion. MEDIASTINUM AND HILAR STRUCTURES: No masses. Contour normal. HEART AND VASCULAR STRUCTURES: Heart enlarged without failure. Normal vasculature. BONES: No acute findings. HARDWARE: Vascular port. Nasogastric tube, tip in the stomach. Endotracheal tube, tip located 2 cm proximal to the kehinde. OTHER: No other significant finding. IMPRESSION: ENDOTRACHEAL TUBE AND NASOGASTRIC TUBE DESCRIBED, SATISFACTORY POSITION. OTHERWISE N O CHANGE. TECHNICAL DOCUMENTATION: JOB ID: [id number] [employer]- All Rights Reserved Reading location - IP/workstation name: [email or web address]
== END 2019-12-08 01:00 | disposition short-term general hospital (02) ==
LOC: ER 23:18
DX: I46.9 Cardiac arrest, cause unspecified (principal); I10 Essential (primary) hypertension; Z87.891 Personal history of nicotine dependence
CPT/HCPCS: 99291; 99292; 51702; 82962; 71045; 70450; 71275; 94660; 31500; J2250

== ENCOUNTER 2020-09-06 20:45 | Emergency (ER) | payer MEDICARE, MEDICAID ==
[2020-09-06 21:31] LABS: ALBUMIN 4.2 g/dL (3.5-5.0); ALKALINE PHOSPHATASE 175 U/L (38-126); ANION GAP 10 (5-19); ASPARTATE AMINO TRANSFERASE 43 U/L (14-36); BILIRUBIN,DIRECT 0.3 mg/dL (0.0-0.4); BILIRUBIN,TOTAL 0.6 mg/dL (0.2-1.3); BLOOD UREA NITROGEN 53 mg/dL (7-20); CALCIUM 9.6 mg/dL (8.4-10.2); CARBON DIOXIDE 32 mmol/L (22-30); CHLORIDE 91 mmol/L (98-107); CREATINE KINASE 35 U/L (30-135); GLUCOSE 200 mg/dL (75-110); HEMATOCRIT 29.7 % (36.0-47.0); HEMOGLOBIN 9.6 g/dL (12.0-15.5); MEAN CORPUSCULAR HGB CONC 32.2 g/dL (32.0-36.0); MEAN CORPUSCULAR VOLUME 87 fl (80-97); PLATELET COUNT 119 10^3/uL (150-450); RED BLOOD COUNT 3.41 10^6/uL (3.72-5.28); RED CELL DISTRIBUTION WIDTH 18.4 % (11.5-14.0); TOTAL PROTEIN 8.1 g/dL (6.3-8.2); WHITE BLOOD COUNT 13.3 10^3/uL (4.0-10.5)
--- NOTE | 2020-09-06 21:40 | RADIOLOGY REPORT (SQ) ---
EXAM DESCRIPTION: XR CHEST 1 VIEW COMPLETED DATE/TME: 09/06/2020 20:57 CLINICAL HISTORY: 89 years, Female, possible aspiration, shortness of breath COMPARISON: Prior study from 12/07/2019 NUMBER OF VIEWS: One TECHNIQUE: Single frontal view of the chest was obtained portably LIMITATIONS: None. FINDINGS: Right IJ approach central venous port catheter tip is located within the SVC. Cardiac and mediastinal contours are stable. Patchy bibasilar opacity is evident. No pneumothorax. There are likely trace bilateral pleural effusions. 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 IMPRESSION: Patchy bibasilar airspace disease. Consider atelectasis or pneumonia to include aspiration. Suspect trace bilateral pleural effusions. copyright 2010 [employer]- All Rights Reserved
[2020-09-06 21:43] LABS: CREATINE KINASE MB 2.72 ng/mL (<4.55); NT PRO BNP 4370 pg/mL (<450); TROPONIN I < 0.012 ng/mL
[2020-09-06] MEDS ORDERED: AMPICILLIN SOD/SULBACTAM 3 GM VIAL IV ONE (21:49)
[2020-09-06] MEDS ORDERED: FUROSEMIDE INJ/PF 40 MG/4 ML SDV IV ONE (21:49)
[2020-09-06 21:59] LABS: ABSOLUTE LYMPHOCYTES# (MANUAL) 1.5 10^3/uL (0.5-4.7); ABSOLUTE MONOCYTES # (MANUAL) 0.3 10^3/uL (0.1-1.4); BASOPHILS % (MANUAL) 0 % (0-2); EOSINOPHILS % (MANUAL) 0 % (0-6); LYMPHOCYTES % (MANUAL) 11 % (13-45); MONOCYTES % (MANUAL) 2 % (3-13); SEGMENTED NEUTROPHILS % (MAN) 87 % (42-78); TOTAL CELLS COUNTED 100
[2020-09-06 22:00] LABS: ANISOCYTOSIS 1+; PLATELET COMMENT DECREASED; TOXIC GRANULATION 1+
--- NOTE | 2020-09-06 22:10 | ER Document Report ---
Entered by ORALIA GUNTER SCRIBE 09/06/202118 Acting as scribe for:MAIA SHAH DO ED General - General Chief Complaint: Vomiting Stated Complaint: VOMITING Time Seen by Provider: 09/06/20 21:05 Information source: Emergency Med Personnel, [facility] Records, Outside Facility Records Cannot obtain history due to: Dementia Notes: This 89 year old female patient presents to the emergency department today with possible aspiration. Patient's history obtained by EMS, [facility], and outside records due to patient's history of dementia. Patient is from [facility] and was dr inking a soda when she began to vomit. EMS were called due to patient having trouble breathing. Per EMS, patient had a decreased pulse ox of 76% on room air on their arrival. Patient's airway was suctioned multiple times en route to the ED and patient was placed on 15L non-rebreather, with improved pulse ox. TRAVEL OUTSIDE OF THE [place] IN LAST 30 DAYS: No - Related Data Allergies/Adverse Reactions: No Known Allergies Allergy (Unverified 08/08/19 16:29) Past Medical History - General Information source: Emergency Med Personnel, [facility] Records, Outside Facility Records Cannot obtain history due to: Dementia - Social History Smoking Status: Unknown if Ever Smoked Lives with: [facility] Family History: Reviewed & Not Pertinent - Past Medical History Cardiac Medical History: Reports: Hx Atrial Fibrillation, Hx Hypertension Pulmonary Medical History: Reports: Hx Bronchitis Endocrine Medical History: Reports: Hx Diabetes Mellitus Type 2 Musculoskeletal Medical History: 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 Psychiatric Medical History: Reports: Hx Dementia, Hx Schizophrenia Traumatic Medical History: Reports: Hx Fractures - distal humerus - Immunizations Hx Diphtheria, Pertussis, Tetanus Vaccination: No Review of Systems - Review of Systems -: Yes ROS unobtainable due to patient's medical condition - Dementia Physical Exam - Vital signs Vitals: Temp Pulse Ox 97.5 F 95 09/06/20 20:50 09/06/20 20:50 - General General appearance: Alert - HEENT Head: Normocephalic, Atraumatic Eyes: Normal Pupils: PERRL - Respiratory Chest status: Nontender Breath sounds: Rhonchi - bilaterally - Cardiovascular Rhythm: Irregularly irregular, Tachycardia Heart sounds: Normal auscultation Murmur: No - Abdominal Inspection: Obese Distension: No distension Bowel sounds: Normal Tenderness: Nontender - Extremities General upper extremity: No: Edema Notes: Pitting edema to bilateral lower extremities. - Neurological Notes: Awake. Alert. Non-verbal. - Psychological Associated symptoms: Normal affect, Normal mood - Skin Skin Temperature: Warm Skin Moisture: Dry Skin Color: Normal Course - Re-evaluation Re-evalutation: 09/06/20 23:55 Frail elderly female with multiple comorbidities - afib, htn, dm, dementia, schizophrenia, is here after aspiration on po fluids at SNF earlier tonight. She dropped her saturation to 71% at SNF. Better after suction and supplemental oxygen. I have discussed the pt with Dr. Stewart and he will see and evaluate for admission. - Vital Signs Vital signs: Temp Pulse Resp BP Pulse Ox 97.8 F 20 127/55 H 91 L 09/07/20 00:30 09/07/20 00:01 09/07/20 00:01 09/07/20 00:01 - Laboratory Result Diagrams: 09/06/20 20:56 09/06/20 20:56 Laboratory results interpreted by me: 09/06/20 09/06/20 09/06/20 20:56 20:56 20:56 WBC 13.3 H RBC 3.41 L Hgb 9.6 L Hct 29.7 L RDW 18.4 H Plt Count 119 L Seg Neuts % (Manual) 87 H Lymphocytes % (Manual) 11 L Monocytes % (Manual) 2 L Abs Neuts (Manual) 11.6 H VBG pH VBG pCO2 Sodium 132.8 L Chloride 91 L Carbon Dioxide 32 H BUN 53 H Creatinine 1.33 H Est GFR ( Amer) 45 L Est GFR (MDRD) Non-Af 38 L Glucose 200 H Magnesium AST 43 H Alkaline Phosphatase 175 H NT-Pro-B Natriuret Pep 4370 H 09/06/20 09/06/20 20:56 22:15 WBC RBC Hgb Hct RDW Plt Count Seg Neuts % (Manual) Lymphocytes % (Manual) Monocytes % (Manual) Abs Neuts (Manual) VBG pH 7.22 L VBG pCO2 74.6 H* Sodium Chloride Carbon Dioxide BUN Creatinine Est GFR ( Amer) Est GFR (MDRD) Non-Af Glucose Magnesium 2.5 H AST Alkaline Phosphatase NT-Pro-B Natriuret Pep - Diagnostic Test Radiology reviewed: Image reviewed, Reports reviewed - EKG Interpretation by Me EKG shows normal: abnormal: Sinus rhythm - A fib with RVR 94 BPM L axis no st elevation or depression my interpretation. Rate: Tachycardia Rhythm: A.Fib Critical Care Note - Critical Care Note Total time excluding time spent on procedures (mins): 30 Discharge - Discharge Clinical Impression: Aspiration into airway Qualifiers: Encounter type: initial encounter Qualified Code(s): T17.908A - Unspecified foreign body in respiratory tract, part unspecified causing other injury, initial encounter Dementia Qualifiers: Dementia type: unspecified type Dementia behavioral disturbance: without behavioral disturbance Qualified Code(s): F03.90 - Unspecified dementia without behavioral disturbance Diabetes mellitus Qualifiers: Diabetes mellitus type: type 2 Diabetes mellitus termite exterminator helper insulin use: without termite exterminator helper use Diabetes mellitus complication status: with other specified complication Qualified Code(s): E11.69 - Type 2 diabetes mellitus with other specified complication Atrial fibrillation Qualifiers: Atrial fibrillation type: unspecified Qualified Code(s): I48.91 - Unspecified atrial fibrillation Condition: Stable Disposition: ADMITTED OBSERVATION Admitting Provider: Terry Unit Admitted: Telemetry I personally performed the services described in the documentation, reviewed and edited the documentation which was dictated to the scribe in my presence, and it accurately records my words and actions.
[2020-09-06 22:26] LABS: VENOUS BLOOD BASE EXCESS 0.7 mmol/L; VENOUS BLOOD HCO3 29.8 mmol/L (20-32); VENOUS BLOOD PH 7.22 (7.30-7.42)
[2020-09-06 22:28] LABS: VENOUS BLOOD PCO2 74.6 mmHg (35-63)
[2020-09-06] MEDS ORDERED: NORMAL SALINE 1000 ML 1,000 ML IV ONE (22:34)
[2020-09-07] MEDS ORDERED: ACETAMINOPHEN 325 MG TABLET PO PRN (01:09)
[2020-09-07] MEDS ORDERED: ATROPINE SULFATE INJ 1 MG/10 ML DISP.SYRIN IV ONE (01:15)
[2020-09-07 01:28] VITALS: BP 70/57
[2020-09-07] MEDS ORDERED: AMPICILLIN SOD/SULBACTAM 3 GM VIAL IV PRN (01:30)
[2020-09-07] MEDS ORDERED: HEPARIN SOD (PORCINE) 5,000 UNIT/ML 1 ML VIAL SUBCUT SCH (06:00)
[2020-09-07] MEDS ORDERED: AMPICILLIN SODIUM/SULBACTAM NA 3 GM in NORMAL SALINE 100 ML IV SCH (06:00)
--- NOTE | 2020-09-07 16:10 | EKG REPORT ---
SEVERITY:- ABNORMAL ECG - ATRIAL FIBRILLATION INCOMPLETE LEFT BUNDLE BRANCH BLOCK PROBABLE LVH WITH SECONDARY REPOL ABNRM : Confirmed by: Leoncio Hernandez MD 07-Sep-2020 16:10:00
== END 2020-09-07 03:35 | disposition admitted as inpatient to this hospital (09) ==
LOC: ER 20:45 → UNDOADMOB 09-07 00:51 → EH 09-07 00:51 → ER 09-07 03:35
DX: T17.900A Unspecified foreign body in respiratory tract, part unspecified causing asphyxiation, initial encounter (principal); X58.XXXA Exposure to other specified factors, initial encounter; I46.9 Cardiac arrest, cause unspecified; F03.90 Unspecified dementia, unspecified severity, without behavioral disturbance, psychotic disturbance, mood disturbance, and anxiety; I48.91 Unspecified atrial fibrillation; E11.8 Type 2 diabetes mellitus with unspecified complications; I10 Essential (primary) hypertension; R60.0 Localized edema
CPT/HCPCS: 93005; 99285; 96361; 96375; 96365; 36415; 87040; 82553; 82550; 83605; 83735; 85025; 87077; 80053; 84484; 82803; 87150 ×26; 83880; 71045; 93010; J0461; J0295; J1940; J7030